=== PATIENT | female | born 1935 | race Caucasian/White ===

== ENCOUNTER → 2021-01-20 18:10 | Outpatient (CLI) | payer MEDICARE, OTHER, SELFPAY ==
[2021-01-20 19:32] LABS: Basophils % 0.6 % (0.1-2.0); Eosinophils # 0.2 K/mm3 (0.0-0.4); Eosinophils % 2.7 % (0.1-12.0); Hematocrit 38.7 % (37.0-47.0); Hemoglobin 12.9 g/dL (12.2-16.2); Lymphocytes # 1.7 K/mm3 (0.7-4.5); Lymphocytes % 25.3 % (10-50); Mean Corpuscular HGB Conc 33.4 g/dL (31.8-35.4); Mean Corpuscular Hemoglobin 30.5 pg (27.0-31.2); Mean Platelet Volume 10.3 fl (7.4-10.4); Monocytes # 0.4 K/mm3 (0.1-1.0); Monocytes % 6.5 % (1.7-9.3); Neutrophils # 4.3 K/mm3 (1.8-7.8); Platelet Count 165 K/mm3 (142-424); Red Blood Count 4.25 M/mm3 (4.20-5.40); Red Cell Distribution Width 14.9 % (11.5-17.5); White Blood Count 6.6 K/mm3 (4.8-10.8)
[2021-01-20 19:40] LABS: Alanine Aminotransferase 18 U/L (12-78); Albumin Level 3.8 g/dl (3.5-5.0); Albumin/Globulin Ratio 1.5 (1.1-1.8); Alkaline Phosphatase 94 U/L (38-126); Anion Gap 13.9 mEq/L (5-15); Aspartate Amino Transferase 32 U/L (14-36); Bilirubin,Total 0.7 mg/dl (0.2-1.3); Blood Urea Nitrogen 23 mg/dl (7-17); Calcium 9.7 mg/dl (8.4-10.2); Carbon Dioxide 29 mmol/L (22.0-30.0); Chloride 101 mmol/L (98-107); Chol/HDL Ratio 4.6 (1-3.5); Cholesterol 164 mg/dl (140-200); Estimated Glomerular Filt Rate 43 ml/min (>60); GFR (African American) 52 ML/MIN (>60); Globulin 2.5 g/dL (1.3-3.2); Glucose 107 mg/dl (74-100); HDL Cholesterol 36 mg/dl (40-60); Potassium 3.9 mmoL/L (3.5-5.1); Sodium 140 mmol/L (136-145); Total Protein,Serum 6.3 g/dl (6.3-8.2); Triglycerides 233 mg/dl (30-150); VLDL Cholesterol 47 mg/dL (0-40)
[2021-01-20 19:51] LABS: Direct LDL Cholesterol 74.68 mg/dL (100-129)
== END ==
PROVIDERS: Visit Provider Internal Medicine Adolescent Medicine
DX: I10 Essential (primary) hypertension (principal); E78.2 Mixed hyperlipidemia
CPT/HCPCS: 80053; 80061; 85025

== ENCOUNTER → 2021-09-23 09:23 | Outpatient (CLI) | payer MEDICARE, OTHER, SELFPAY ==
[2021-09-23 14:08] LABS: Basophils % 0.5 % (0.1-2.0); Eosinophils # 0.3 K/mm3 (0.0-0.4); Eosinophils % 4.5 % (0.1-12.0); Hematocrit 41.3 % (37.0-47.0); Hemoglobin 13.5 g/dL (12.2-16.2); Lymphocytes # 1.5 K/mm3 (0.7-4.5); Lymphocytes % 26.4 % (10-50); Mean Corpuscular HGB Conc 32.7 g/dL (31.8-35.4); Mean Corpuscular Hemoglobin 31.2 pg (27.0-31.2); Mean Corpuscular Volume 95.5 fl (81-99); Mean Platelet Volume 10.4 fl (7.4-10.4); Monocytes # 0.3 K/mm3 (0.1-1.0); Monocytes % 5.8 % (1.7-9.3); Neutrophils # 3.6 K/mm3 (1.8-7.8); Neutrophils % 62.8 % (37.0-80.0); Platelet Count 179 K/mm3 (142-424); Red Blood Count 4.33 M/mm3 (4.20-5.40); White Blood Count 5.7 K/mm3 (4.8-10.8)
[2021-09-23 14:43] LABS: Alanine Aminotransferase 20 U/L (12-78); Albumin Level 3.9 g/dl (3.5-5.0); Albumin/Globulin Ratio 1.7 (1.1-1.8); Alkaline Phosphatase 84 U/L (38-126); Anion Gap 8.5 mEq/L (5-15); Aspartate Amino Transferase 31 U/L (14-36); Bilirubin,Total 0.9 mg/dl (0.2-1.3); Blood Urea Nitrogen 24 mg/dl (7-17); Calcium 9.9 mg/dl (8.4-10.2); Carbon Dioxide 31 mmol/L (22.0-30.0); Chloride 102 mmol/L (98-107); Cholesterol 163 mg/dl (140-200); Estimated Glomerular Filt Rate 47 ml/min (>60); GFR (African American) 57 ML/MIN (>60); Globulin 2.3 g/dL (1.3-3.2); Glucose 98 mg/dl (74-100); HDL Cholesterol 41 mg/dl (40-60); Potassium 3.5 mmoL/L (3.5-5.1); Sodium 138 mmol/L (136-145); Total Protein,Serum 6.2 g/dl (6.3-8.2); Triglycerides 154 mg/dl (30-150); VLDL Cholesterol 31 mg/dL (0-40)
[2021-09-23 14:54] LABS: Direct LDL Cholesterol 76.11 mg/dL (100-129)
== END ==
PROVIDERS: Visit Provider Internal Medicine Adolescent Medicine
DX: I10 Essential (primary) hypertension (principal); E78.00 Pure hypercholesterolemia, unspecified
CPT/HCPCS: 36415; 80053; 80061; 85025

== ENCOUNTER → 2022-06-25 01:00 | Outpatient (CLI) | payer MEDICARE, OTHER, SELFPAY ==
[2022-06-25 18:41] LABS: Basophils % 0.5 % (0.1-2.0); Eosinophils # 0.2 K/mm3 (0.0-0.4); Eosinophils % 3.2 % (0.1-12.0); Hematocrit 42.5 % (37.0-47.0); Hemoglobin 13.7 g/dL (12.2-16.2); Lymphocytes # 1.7 K/mm3 (0.7-4.5); Lymphocytes % 24.9 % (10-50); Mean Corpuscular HGB Conc 32.3 g/dL (31.8-35.4); Mean Corpuscular Hemoglobin 30.4 pg (27.0-31.2); Mean Corpuscular Volume 94.1 fl (81-99); Mean Platelet Volume 9.7 fl (7.4-10.4); Monocytes # 0.4 K/mm3 (0.1-1.0); Monocytes % 5.5 % (1.7-9.3); Neutrophils # 4.4 K/mm3 (1.8-7.8); Neutrophils % 65.9 % (37.0-80.0); Platelet Count 248 K/mm3 (142-424); Red Blood Count 4.51 M/mm3 (4.20-5.40); Red Cell Distribution Width 14.2 % (11.5-17.5); White Blood Count 6.6 K/mm3 (4.8-10.8)
[2022-06-25 18:46] LABS: Alanine Aminotransferase 18 U/L (12-78); Albumin/Globulin Ratio 1.5 (1.1-1.8); Alkaline Phosphatase 134 U/L (38-126); Anion Gap 10.1 mEq/L (5-15); Aspartate Amino Transferase 31 U/L (14-36); Bilirubin,Total 0.6 mg/dl (0.2-1.3); Blood Urea Nitrogen 32 mg/dl (7-17); Calcium 10.9 mg/dl (8.4-10.2); Carbon Dioxide 30 mmol/L (22.0-30.0); Chloride 103 mmol/L (98-107); Chol/HDL Ratio 4.4 (1-3.5); Cholesterol 173 mg/dl (140-200); Estimated Glomerular Filt Rate 39 ml/min (>60); GFR (African American) 47 ML/MIN (>60); Globulin 2.7 g/dL (1.3-3.2); Glucose 111 mg/dl (74-100); HDL Cholesterol 39 mg/dl (40-60); Potassium 4.1 mmoL/L (3.5-5.1); Sodium 139 mmol/L (136-145); Total Protein,Serum 6.7 g/dl (6.3-8.2); Triglycerides 188 mg/dl (30-150); VLDL Cholesterol 38 mg/dL (0-40)
[2022-06-25 18:57] LABS: Direct LDL Cholesterol 83.52 mg/dL (100-129)
[2022-06-25 19:38] LABS: Hemoglobin A1C 6.2 % (4.0-6.0)
== END ==
PROVIDERS: PCP Family Medicine; Visit Provider Family Medicine
DX: E78.5 Hyperlipidemia, unspecified (principal); I10 Essential (primary) hypertension; Z13.1 Encounter for screening for diabetes mellitus; R73.09 Other abnormal glucose
CPT/HCPCS: 80053; 80061; 83036; 84443; 85025

== ENCOUNTER 2023-12-27 18:00 | Outpatient (CLI) | payer MEDICARE, OTHER, SELFPAY ==
[2023-12-27 16:49] LABS: Alanine Aminotransferase 20 U/L (12-78); Albumin/Globulin Ratio 1.7 (1.1-1.8); Alkaline Phosphatase 86 U/L (38-126); Anion Gap 11.5 mEq/L (5-15); Aspartate Amino Transferase 34 U/L (14-36); Bilirubin,Total 0.8 mg/dl (0.2-1.3); Blood Urea Nitrogen 25 mg/dl (7-17); Calcium 10.4 mg/dl (8.4-10.2); Carbon Dioxide 31 mmol/L (22.0-30.0); Chloride 100 mmol/L (98-107); Chol/HDL Ratio 4.4 (1-3.5); Cholesterol 168 mg/dl (140-200); Estimated Glomerular Filt Rate 47 ml/min (>60); GFR (African American) 57 ML/MIN (>60); Globulin 2.4 g/dL (1.3-3.2); Glucose 86 mg/dl (74-100); HDL Cholesterol 38 mg/dl (40-60); Potassium 3.5 mmoL/L (3.5-5.1); Sodium 139 mmol/L (136-145); Total Protein,Serum 6.4 g/dl (6.3-8.2); Triglycerides 179 mg/dl (30-150); VLDL Cholesterol 36 mg/dL (0-40)
[2023-12-27 17:00] LABS: Direct LDL Cholesterol 83.27 mg/dL (100-129)
== END 2023-12-27 23:59 | disposition home or self-care (01) ==
LOC: LAB.DROPOF 01-10 13:37
PROVIDERS: PCP Family Medicine; Visit Provider Family Medicine
DX: I10 Essential (primary) hypertension (principal)
CPT/HCPCS: 80053; 80061

== ENCOUNTER 2024-07-28 16:14 | Emergency (ER) | payer MEDICARE, OTHER, SELFPAY ==
[2024-07-28 16:14] VITALS: BP 223/111; PULSE 68; RESP 20; TEMP 36.9; O2SAT 96; BMI 30.2
--- NOTE | 2024-07-28 16:16 | CT_ITS ---
PROCEDURE INFORMATION: Exam: CT Head Without Contrast Exam date and time: 07/28/2024 4:35 PM Age: 89 years old Clinical indication: Other: Confusion TECHNIQUE: Imaging protocol: Computed tomography of the head without contrast. Radiation optimization: All CT scans at this facility use at least one of these dose optimization techniques: automated exposure control; mA and/or kV adjustment per patient size (includes targeted exams where dose is matched to clinical indication); or iterative reconstruction. COMPARISON: No relevant prior studies available. FINDINGS: Brain: No intracranial hemorrhage. Generalized atrophic changes of the ventricles and subarachnoid spaces. Chronic small-vessel ischemic changes noted. No mass, mass effect or midline shift. Intracranial atherosclerotic changes are noted. Cerebral ventricles: See Brain finding. Paranasal sinuses: Total opacification of the right maxillary sinus with associated mucoperiosteal reaction suggesting possible chronic sinusitis type changes noted. Sinuses otherwise clear. No fluid levels. Mastoid air cells: Visualized mastoid air cells are well aerated. Bones: Unremarkable. No acute fracture. Soft tissues: Unremarkable. IMPRESSION: 1. No acute intracranial abnormality. Chronic changes as above. 2. Right maxillary sinusT disease that may be chronic.
--- NOTE | 2024-07-28 16:16 | ED_ITS ---
<Statement entered by Laura Mckeon MD - 07/28/24 23:24> I was consulted by the BALDEMAR, and we discussed the complexity of the problems being addressed. I approved the treatment and management plan for this patient's care in the emergency department, thus performing a substantive portion of the medical decision making. Laura Mckeon MD, DAGOBERTO, FACEP Discharge Plan Disposition Patient Disposition: Home, Self-Care Condition: Good Prescriptions Prescriptions: New nitrofurantoin monohyd/m-cryst 100 mg capsule 100 mg PO BID 5 Days Qty: 10 0RF Rx Instructions: must administer with a meal/food No Action carvedilol 25 mg tablet 25 mg PO BID 90 Days Qty: 180 0RF Rx Instructions: must administer with a meal/food furosemide 40 mg tablet 40 mg PO DAILY PRN (Reason: edema) Qty: 90 1RF lisinopril 40 mg tablet See Rx Instructions .ROUTE .COMPLEX Qty: 90 0RF Dose Instruction: TAKE 1 TABLET 1 TIME EACH DAY Rx Instructions: TAKE 1 TABLET 1 TIME EACH DAY indapamide 2.5 mg tablet See Rx Instructions .ROUTE .COMPLEX Qty: 90 0RF Dose Instruction: TAKE 1 TABLET 1 TIME EACH DAY Rx Instructions: TAKE 1 TABLET 1 TIME EACH DAY atorvastatin 40 mg tablet See Rx Instructions .ROUTE .COMPLEX Qty: 90 0RF Dose Instruction: TAKE 1 TABLET 1 TIME EACH DAY Rx Instructions: TAKE 1 TABLET 1 TIME EACH DAY aspirin [Adult Aspirin Regimen] 81 mg tablet,delayed release (DR/EC) 81 mg PO DAILY 90 Days Qty: 90 1RF Referrals Follow up/Referrals: Elio Banerjee MD [Primary Care Provider] - See instructions Dakota Fischer MD [Staff Physician] - See instructions Activity Restrictions/Add. Instructions Additional Instructions/Restrictions: Follow-up with your PCP within 48 hours for recheck. I have referred you to cardiology. You need only to show up in clinic on Wednesday and they will see you. Recommend restarting your blood pressure medications. I have prescribed you an antibiotic for bacteria in your urine. Please take that until it is gone. Return to ER for any worsening signs or symptoms as needed. Clinical Impressions Clinical Impression: Hypertension, uncontrolled, Elevated brain natriuretic peptide (BNP) level, Chronic kidney disease, Bacteriuria Print Language Print Language: Uzbek Discharge ED Provider: Laura Mckeon General Adult HPI General Chief complaint: Dizziness Stated complaint: Confusion Time Seen by Provider: 07/28/24 16:15 History of Present Illness HPI narrative: Patient presents for evaluation of dizziness. Patient reports that she has been feeling dizzy over the last 2 weeks. She has a history of hypertension has been poorly controlled. She has been on and off of her medication regimen periodically. Patient himself states that she does not think it is helping as her blood pressure stays high no matter what she takes so far. It is of note that patient is not very receptive to seeing the doctor or taking medication normally and has not actually seen cardiology or nephrology in the past. Currently she denies chest pain fever chills hemoptysis hematochezia melena nausea vomit diarrhea but does report that she is having feet swelling. She has no change in her level of consciousness and is not currently dizzy in the emergency department. Related Data Previous Rx's ?Medication ?Instructions ?Recorded aspirin 81 mg tablet,delayed 81 mg PO DAILY 90 days #90 tabs 07/14/24 release (Adult Aspirin Regimen) atorvastatin 40 mg tablet See Rx Instructions .Route 07/14/24 .COMPLEX #90 tabs carvedilol 25 mg tablet 25 mg PO BID 90 days #180 tabs 07/14/24 furosemide 40 mg tablet 40 mg PO DAILY PRN edema #90 tabs 07/14/24 indapamide 2.5 mg tablet See Rx Instructions .Route 07/14/24 .COMPLEX #90 tabs lisinopril 40 mg tablet See Rx Instructions .Route 07/14/24 .COMPLEX #90 tabs nitrofurantoin 100 mg PO BID 5 days #10 caps 07/28/24 monohydrate/macrocrystals 100 mg capsule Allergies Allergy/AdvReac Type Severity Reaction Status Date / Time No Known Allergies Allergy Verified 07/06/24 08:40 [facility] Disclaimer: The information contained in this section may have been updated after the patient was seen, as this information can be updated by other users. Surgical History History of lumpectomy of right breast H/O tubal ligation Family History Mother Hypertension Father Hypertension Social History Smoking Status: Never smoker alcohol intake: never substance use type: denies use current occupational status: retired Travel in the last 8 weeks: None household members: none housing: house Have you lived/traveled outside US in past 30 days?: No Contact w/someone who lives/traveled outside US past 30 days?: No Exposure to someone with infectious disease in past 14 days?: No Do you have a fever (greater than 100.4 F or 38 C)?: No Have you tested positive for COVID-19: No Exposed to someone with COVID-19 in past 14 days?: No Do you have a sore throat?: No Do you have a cough?: No Do you have any weakness?: No Do you have any diarrhea?: No Are you experiencing any unusual bleeding?: No Do you have any muscle aches/pain?: No Do you have any abdominal pain?: No Are you experiencing loss of taste or smell?: No Other Medical History Have you received the Pneumonia Vaccine: No ROS Obtained: Yes Systems reviewed as appropriate & no additional complaints except as documented Physical Exam General General appearance: alert and in no apparent distress Respiratory Respiratory exam: Present normal lung sounds bilaterally Cardiovascular Cardiovascular exam: Present regular rate Neurological Exam Neurological exam: Present alert, oriented X3, CN II-XII intact and normal gait; Absent motor sensory deficit Psychiatric Psychiatric exam: Present normal affect and normal mood Medical Decision Making Medical Records Medical records reviewed: Yes I reviewed the patient's medical records. Screening: Per USPSTF and CDC recommendations, given the prevalence of disease in our region, it is our hospital?s policy to screen for HIV and viral Hepatitis for all patients aged 18 and over and those with ongoing risk factors. Issa Inquiry Pt receiving controlled substance: No Vital Signs: 07/28/24 16:14 07/28/24 16:22 07/28/24 16:52 Temperature 98.4 F Temperature Source Oral Pulse Rate 69 70 Pulse Rate [Left Radial] 68 Respiratory Rate 20 Blood Pressure 223/111 H 210/107 H Blood Pressure [Right Arm] 223/111 H Blood Pressure Mean [Right Arm] 148 02 Sat by Pulse Oximetry 96 95 97 Oxygen Delivery Method Room Air Room Air 07/28/24 16:55 07/28/24 18:16 07/28/24 18:22 Temperature 98.2 F Temperature Source Pulse Rate 69 74 70 Pulse Rate [Left Radial] Respiratory Rate 20 Blood Pressure 214/107 H 221/110 H 208/90 H Blood Pressure [Right Arm] Blood Pressure Mean [Right Arm] 02 Sat by Pulse Oximetry 96 97 Oxygen Delivery Method Room Air Room Air Lab Data Lab results reviewed: Yes I reviewed the patient's lab results. Lab Results 07/28/24 16:34: Urine Color Dark yellow, Urine Appearance Clear, Urine pH 6.0, Ur Specific [place] 1.020, Urine Protein 1+ A, Urine Glucose (UA) Negative, Urine Ketones Negative, Urine Blood Negative, Urine Nitrate Negative, Urine Bilirubin Negative, Urine Urobilinogen 1.0, Ur Leukocyte Esterase Trace, Urine RBC None, Urine WBC 3-5, Ur Squamous Epith Cells 3-5, Urine Bacteria 2+ 07/28/24 17:05: WBC 5.5, RBC 4.54, Hgb 13.8, Hct 41.3, MCV 91.0, MCH 30.4, MCHC 33.4, RDW 13.2, Plt Count 198, MPV 10.8 H, Neut % (Auto) 69.6, Lymph % (Auto) 21.1, [place] % (Auto) 6.8, Eos % (Auto) 1.5, Baso % (Auto) 0.6, Neut # (Auto) 3.8, Lymph # (Auto) 1.2, [place] # (Auto) 0.4, Eos # (Auto) 0.1, Baso # (Auto) 0.0, PT 10.6, INR 0.96, Sodium 140, Potassium 3.4 L, Chloride 103, Carbon Dioxide 31 H, Anion Gap 9.4, BUN 31 H, Creatinine 1.20 H, Estimated Creat Clear 36, Estimated GFR 42 L, Est GFR ( Amer) 51 L, Glucose 112 H, Calcium 10.3 H, Magnesium 1.6, Total Bilirubin 0.8, AST 29, ALT 19, Alkaline Phosphatase 104, Troponin I 0.02, NT-Pro-B Natriuret Pep 957 H, Total Protein 7.0, Albumin 4.1, Globulin 2.9, Albumin/Globulin Ratio 1.4, Procalcitonin 0.043 07/28/24 17:07: VBG pH 7.41, VBG pCO2 47.3, VBG pO2 35.9, VBG HCO3 29.0, VBG Total CO2 30.5 H, VBG O2 Saturation 69.4, VBG Base Excess 4.3 H, VBG Lactic Acid 1.8 07/28/24 17:13: Chlamy pneumoniae PCR Not detected, Adenovirus (PCR) Not detected, B. pertussis DNA (PCR) Not detected, Coronavirus OC43 (PCR) Not detected, Coronavirus HKU1 (PCR) Not detected, Coronavirus 229E (PCR) Not detected, SARS-CoV-2 (PCR) Not detected, Coronavirus NL63 (PCR) Not detected, Human Metapneumovir PCR Not detected, Influenza A (H1) PCR Not detected, Influ A (H1N1/09) PCR Not detected, Influenza A (H3) PCR Not detected, Influenza Type A (PCR) Not detected, Influenza Type B (PCR) Not detected, M. pneumoniae (PCR) Not detected, Parainfluenza 1 (PCR) Not detected, Parainfluenza 2 (PCR) Not detected, Parainfluenza 3 (PCR) Not detected, Parainfluenza 4 (PCR) Not detected, RSV (PCR) Not detected, Entero/Rhino (PCR) Not detected 07/28/24 17:05 07/28/24 17:05 Orders (Tests/Meds): ED MEDICATIONS Discontinued Medications Generic Name Dose Route Start Last Admin Trade Name Freq PRN Reason Stop Dose Admin Carvedilol 25 mg 07/28/24 17:36 07/28/24 17:49 Carvedilol 25mg Tablet PO 07/28/24 17:37 25 mg ONCE ONE Administration Sodium Chloride 1,000 mls @ 999 mls/hr 07/28/24 17:35 07/28/24 17:48 Sod Chlor 0.9% 1000ml Bag IV 07/28/24 18:35 999 mls/hr .Q1H1M ONE Administration Lisinopril 40 mg 07/28/24 17:37 07/28/24 17:48 Lisinopril 20mg Tablet PO 07/28/24 17:38 40 mg ONCE ONE Administration Nitrofurantoin Macrocrystals 100 mg 07/28/24 18:14 07/28/24 18:22 Nitrofurantoin 100mg Capsule PO 07/28/24 18:15 100 mg ONCE ONE Administration Potassium Chloride 60 meq 07/28/24 17:35 07/28/24 17:48 Potassium Chloride 20meq Tab PO 07/28/24 17:36 60 meq ONCE ONE Administration ORDERS Category Date Time Status CT head/brain wo con Stat Cat Scan 07/28/24 16:16 Completed BNP [NT Pro Brain Natriuretic Pep.] Stat Lab 07/28/24 17:05 Completed CBC w/Auto Diff [Complete Blood Count Auto Diff] Stat Lab 07/28/24 17:05 Completed CMP [Comprehensive Metabolic Panel] Stat Lab 07/28/24 17:05 Completed Full Resp Panel w/COVID ([facility]) Routine Lab 07/28/24 17:13 Completed INR [Prothrombin Time INR] Stat Lab 07/28/24 17:05 Completed Magnesium Stat Lab 07/28/24 17:05 Completed Procalcitonin Stat Lab 07/28/24 17:05 Completed Thyroid Panel Stat Lab 07/28/24 17:05 Received Trop I [Troponin I] Stat Lab 07/28/24 17:05 Completed UA [Urinalysis and Microscopic] Stat Lab 07/28/24 16:34 Completed Urine Culture Stat Micro 07/28/24 16:34 Received VBG [Venous Blood Gas] Stat RT 07/28/24 17:07 Completed HEART Score History (anamnesis): Slightly suspicious ECG: Non-specific disturbance Age: >65 years Risk factors: 3 or more risk factors Troponin: </= normal limit HEART Score: 5 Medical Decision Narrative: In summary patient is a 89-year-old female who presents to the emergency department for evaluation of for dizziness. Patient is initially significantly hypertensive on arrival with a blood pressure of 223/111 with a pulse of 68 normal sinus rhythm on the bedside monitor breathing 20 times a minute satting at 96% on room air , afebrile at 98.4. Physical exam is actually remarkable for clear breath sounds clear heart sounds [place] Coma Score 15 patient is awake alert and oriented person place and circumstance currently. Cranial nerves II through XII are intact grossly to exam. No abdominal tenderness no abdominal swelling normal bowel sounds, patient has 3+ bilateral lower extremity pitting edema however they are nonpainful. Interview with friends and family members in the room however are revealing as patient had an episode where she had 12 phone calls and 1 day to her neighbor and patient does not recall those conversations. She is very much unaware of some periods of time over the last 2 weeks.. Differential diagnosis includes encephalopathy versus stroke versus malignant hypertension versus infection etc. Initial workup will be conducted with hematologic labs CT scan of the head twelve-lead EKG urinalysis respiratory swabs. Initial interventions include were considered including blood pressure lowering medications however I do not know what the patient's functional baseline is and she appears to be mentating appropriately currently swab be highly cautious in lowering her blood pressure until after workup is done. Initial workup reviewed by me and her hematologic labs are remarkable for a potassium of 3.4 BUN of 31 creatinine 1.2 GFR 42 calcium of 10.3 initial troponin of 0.02 and NT proBNP of 957 procalcitonin of 0.043 urinalysis is nitrite ketone leukocyte blood negative on dipstick however microscopic exam shows no red blood cells 3-5 whites 3-5 epithelial cells and 2+ bacteria although patient has no symptoms. Her respiratory panel was negative for all organisms. My informal interpretation of his CT scan of head did not show any acute intracranial processes.. Upon repeat evaluation initiated hypertensive controls with first doses of the patient's home doses of lisinopril and carvedilol. I talked to the patient regarding her workup and findings and that she does have evidence of endorgan damage both long-term and possibly acutely given her worsening renal function, the fact that the patient does not know that she has chronic renal disease, her elevated NT proBNP and her periods of lucidity suggestive of hypertensive encephalopathy. I did recommend further workup with possible admission but patient was adamant about going home and via patient directed decision making and discharge she retains decision-making capacity for this and although I highly caution her about the risks she will be discharged. I have arranged for the patient to be seen by her PCP on Wednesday as well as cardiology. All she has to do is show up at the cardiology clinic and they will see her. I have given the patient the option to return to the ER at any time if she has any worsening signs or symptoms. Critical Care Critical Care Time Critical Care Time: Yes Attestation: On 07/28/24, the high probability of a clinically significant, sudden or life threatening deterioration of the following system(s) required my full and direct attention, intervention and personal management. The time I documented below is in addition to time spent performing reported procedures but includes the following listed in this critical care notation. Total Time Total Critical Care Time: 35
[2024-07-28 16:22] VITALS: BP 223/111; PULSE 69; O2SAT 95
[2024-07-28 16:39] LABS: Microscopic, Urine URINE MICROSCOPIC (MICROSCOPIC)
[2024-07-28 16:46] LABS: Appearance,Urine CLEAR (Clear); Bilirubin,Urine Negative (Negative); Blood, Urine Negative (Negative); Color,Urine DARK YELLOW (Yellow); Glucose,Urine (UA) Negative (Negative); Ketones,Urine Negative (Negative); Leukocyte Esterase,Urine TRACE (Negative); Nitrate,Urine Negative (Negative); Protein,Urine 1+ (Negative)
[2024-07-28 16:52] VITALS: BP 210/107; PULSE 70; O2SAT 97
[2024-07-28 16:55] VITALS: BP 214/107; PULSE 69; O2SAT 96
[2024-07-28 17:12] LABS: Basophils % 0.6 % (0.1-2.0); Eosinophils # 0.1 K/mm3 (0.0-0.4); Eosinophils % 1.5 % (0.1-12.0); Hematocrit 41.3 % (37.0-47.0); Hemoglobin 13.8 g/dL (12.2-16.2); Lymphocytes # 1.2 K/mm3 (0.7-4.5); Lymphocytes % 21.1 % (10-50); Mean Corpuscular HGB Conc 33.4 g/dL (31.8-35.4); Mean Corpuscular Hemoglobin 30.4 pg (27.0-31.2); Mean Platelet Volume 10.8 fl (7.4-10.4); Monocytes # 0.4 K/mm3 (0.1-1.0); Monocytes % 6.8 % (1.7-9.3); Neutrophils # 3.8 K/mm3 (1.8-7.8); Neutrophils % 69.6 % (37.0-80.0); Platelet Count 198 K/mm3 (142-424); Red Blood Count 4.54 M/mm3 (4.20-5.40); Red Cell Distribution Width 13.2 % (11.5-17.5); White Blood Count 5.5 K/mm3 (4.8-10.8)
[2024-07-28 17:17] LABS: Lactate Venous 1.8 mmol/L (0.4-2.0); VBG Base Excess 4.3 mmol/L (-2.4-2.3); VBG Oxygen Saturation 69.4 % (50-70); VBG PCO2 47.3 mmol/L (35-51); VBG PH 7.41 mmol/L (7.31-7.41); VBG PO2 35.9 mmol/L (28-40); VBG Total CO2 30.5 mmol/L (23-27)
[2024-07-28 17:25] LABS: Alanine Aminotransferase 19 U/L (12-78); Albumin Level 4.1 g/dl (3.5-5.0); Albumin/Globulin Ratio 1.4 (1.1-1.8); Alkaline Phosphatase 104 U/L (38-126); Anion Gap 9.4 mEq/L (5-15); Aspartate Amino Transferase 29 U/L (14-36); Bilirubin,Total 0.8 mg/dl (0.2-1.3); Blood Urea Nitrogen 31 mg/dl (7-17); Calcium 10.3 mg/dl (8.4-10.2); Carbon Dioxide 31 mmol/L (22.0-30.0); Chloride 103 mmol/L (98-107); Creatinine Clearance Estimated 36 mL/min (50-200); Estimated Glomerular Filt Rate 42 ml/min (>60); GFR (African American) 51 ML/MIN (>60); Globulin 2.9 g/dL (1.3-3.2); Glucose 112 mg/dl (74-100); Potassium 3.4 mmoL/L (3.5-5.1); Sodium 140 mmol/L (136-145)
[2024-07-28 17:33] LABS: Magnesium 1.6 mg/dl (1.6-2.3)
[2024-07-28 17:34] LABS: Adenovirus,PCR Not Detected (NotDetected); Bordetella Pertussis Not Detected (NotDetected); Chlamydophila Pneumoniae, PCR Not Detected (NotDetected); Coronavirus 19, PCR Not Detected (NotDetected); Coronavirus 229E Not Detected (NotDetected); Coronavirus NL63 Not Detected (NotDetected); Coronavirus OC43 Not Detected (NotDetected); Coronovirus HKU1,PCR Not Detected (NotDetected); Human Metapneumovirus Not Detected (NotDetected); Influenza A, PCR Not Detected (NotDetected); Influenza AH1, 2009 Not Detected (NotDetected); Influenza AH1, PCR Not Detected (NotDetected); Influenza AH3,PCR Not Detected (NotDetected); Influenza B, PCR Not Detected (NotDetected); Mycoplasma Pneumoniae, PCR Not Detected (NotDetected); Parainfluenza 1, PCR Not Detected (NotDetected); Parainfluenza 2, PCR Not Detected (NotDetected); Parainfluenza 3, PCR Not Detected (NotDetected); Parainfluenza 4, PCR Not Detected (NotDetected); Respiratory Syncytial Virus Not Detected (NotDetected); Rhinovirus/Enterovirus Not Detected (NotDetected)
[2024-07-28 17:37] LABS: Troponin I 0.02 ng/ml (0.00-0.034)
[2024-07-28 17:38] LABS: INR 0.96 (0.9-1.1); Prothrombin Time 10.6 seconds (9.2-12.1)
[2024-07-28 17:42] LABS: NT Pro Brain Natriuretic Pep. 957 pg/mL (0-450)
[2024-07-28] MEDS: LISINOPRIL 20MG TABLET 40 MG PO (17:48)
[2024-07-28] MEDS: 0.9 % SODIUM CHLORIDE 1000ML 1,000 ML 999 ML IV (17:48)
[2024-07-28] MEDS: POTASSIUM CHLORIDE 20MEQ TAB 60 MEQ PO (17:48)
[2024-07-28 17:49] LABS: Bacteria,Urine 2+ /lpf
[2024-07-28] MEDS: CARVEDILOL 25MG TABLET 25 MG PO (17:49)
--- NOTE | 2024-07-28 18:13 | PC.NURSE ---
pt was given a warm blanket
[2024-07-28 18:16] VITALS: BP 221/110; PULSE 74; O2SAT 97
[2024-07-28 18:22] VITALS: BP 208/90; PULSE 70; RESP 20; TEMP 36.8; O2SAT 98
[2024-07-28] MEDS: NITROFURANTOIN 100MG CAPSULE 100 MG PO (18:22)
[2024-07-28 18:48] LABS: Procalcitonin 0.043 ng/mL (0.0-2.0)
[2024-07-28 20:22] LABS: Triiodothryronine (T3) Uptake 33 % (23.5-40.5)
[2024-07-28 20:23] LABS: Free Thyroxine Index 3.6 ug/dL (5.93-13.13)
== END 2024-07-28 18:35 | disposition home or self-care (01) ==
PROVIDERS: Physician Assistant; Emergency Provider Student in an Organized Health Care Education/Training Program; PCP Family Medicine
DX: R82.71 Bacteriuria (principal); N18.9 Chronic kidney disease, unspecified; I12.9 Hypertensive chronic kidney disease with stage 1 through stage 4 chronic kidney disease, or unspecified chronic kidney disease; R79.89 Other specified abnormal findings of blood chemistry; R42 Dizziness and giddiness; R22.43 Localized swelling, mass and lump, lower limb, bilateral
CPT/HCPCS: 70450; 80053; 81001; 82803; 83735; 83880; 84145; 84436; 84443; 84479; 84484; 85025; 85610; 87086; 87633; 96360; 99285; J7030

== ENCOUNTER 2024-11-23 11:59 | Observation (INO) | payer MEDICARE, OTHER, SELFPAY ==
[2024-11-23] VITALS (12 sets, daily range): BP systolic 133–203; BP diastolic 60–114; PULSE 60–79; RESP 14–20; TEMP 36.5–36.7; O2SAT 92–99; BMI 26.8; BMI 28.8
--- NOTE | 2024-11-23 11:59 | ECG_ITS ---
APPROVED REPORT Exam: Resting ECG HR:60 bpm ECG Measurements Heart Rate 60 AXES IA 127 P 245 QRSd 107 QRS -25 QT 437 T 18 QTc 437 Conclusion Junctional rhythm Left axis deviation Incomplete right bundle branch block Electronically signed by : WILLIAM GARCIA, 11/26/2024 19:36:10
--- NOTE | 2024-11-23 12:20 | CT_ITS ---
FINAL REPORT TECHNIQUE: NASCET technique utilized for stenosis evaluation. CLINICAL HISTORY: fall, AMS COMPARISON: None FINDINGS: RIGHT CAROTID: No significant stenosis is seen of the cervical common or internal carotid artery. Minimal calcification at the bifurcation. LEFT CAROTID: No significant stenosis seen of the cervical common or internal carotid artery. Minimal calcification at the bifurcation. VERTEBRALS: The vertebrals are patent. No significant stenosis is present. IMPRESSION: No significant arterial abnormality. Reviewed, Interpreted and Dictated by Jairo Rader MD Transcribed by Iliana Damon Authenticated and [facility]
--- NOTE | 2024-11-23 12:20 | CT_ITS ---
FINAL REPORT TECHNIQUE: thin section axial CT with and without IV contrast supplemented with multiplanar 3-D reconstruction of the head. This study was performed with techniques to keep radiation doses as low as reasonably achievable, (ALARA)individualized dose reduction techniques using automated exposure control or adjustment of mA and/or kV according to the patient's size were employed. CLINICAL HISTORY: fall, AMS COMPARISON: None FINDINGS: The patient's head is asymmetrically positioned at the gantry. CTA: The cranial circulation is unremarkable. There is no significant stenosis, aneurysm or large vessel occlusion. Normal branching patterns are noted. There is opacification of the right maxillary sinus IMPRESSION: No acute process. Reviewed, Interpreted and Dictated by Jairo Rader MD Transcribed by Iliana Damon Authenticated and [facility]
--- NOTE | 2024-11-23 12:20 | CT_ITS ---
FINAL REPORT TECHNIQUE: Multiple axial CT images were performed from the foramen magnum to the vertex without enhancement. This study was performed with techniques to keep radiation doses as low as reasonably achievable, (ALARA). Individualized dose reduction techniques using automated exposure control or adjustment of mA and/or kV according to the patient's size were employed. CLINICAL HISTORY: fall, AMS COMPARISON: 07/28/2024 FINDINGS: The ventricles are enlarged. There is diffuse atrophy. There is patchy decreased attenuation in the deep white matter. There is no evidence of hemorrhage. No masses are identified. No extra-axial fluid is seen. There is opacification of the right maxillary sinus, stable from previous. IMPRESSION: Atrophy and chronic changes without acute process. Reviewed, Interpreted and Dictated by Jairo Rader MD Transcribed by Cyndi Reynolds Authenticated and [facility]
--- NOTE | 2024-11-23 12:23 | PC.NURSE ---
I called and spoke with the pts person to notify, Xiomara, to obtain the pts baseline whom is typically A&0X4 and independent. Xiomara states when she talked to the pt last night she was very confused. The pt reportedly told Xiomara at that time that she has been out of her medication.
--- NOTE | 2024-11-23 12:24 | PC.NURSE ---
RESPIRATORY NOTIFIED OF VBG
[2024-11-23 12:30] LABS: Basophils % 0.5 % (0.1-2.0); Eosinophils # 0.1 Kmm3 (0.0-0.4); Eosinophils % 1.4 % (0.1-12.0); Hematocrit 36.6 % (37.0-47.0); Hemoglobin 12.4 g/dL (12.2-16.2); Immature Granulocytes # 0.02 10^3uL; Immature Granulocytes % 0.4 %; Lymphocytes # 0.9 K/mm3 (0.7-4.5); Lymphocytes % 16.1 % (10-50); Mean Corpuscular HGB Conc 33.9 g/dL (31.8-35.4); Mean Corpuscular Hemoglobin 30.5 pg (27.0-31.2); Mean Corpuscular Volume 90.1 fl (81-99); Mean Platelet Volume 10.5 fl (7.4-10.4); Monocytes # 0.4 K/mm3 (0.1-1.0); Neutrophils # 4.1 K/mm3 (1.8-7.8); Neutrophils % 73.6 % (37.0-80.0); Nucleated Red Blood Cells # 0 10^3/uL; Nucleated Red Blood Cells % 0 %; Platelet Count 212 K/mm3 (142-424); Red Blood Count 4.06 M/mm3 (4.20-5.40); Red Cell Distribution Width 13.4 % (11.5-17.5); Red Cell Distribution Width-SD 44.7 fL; White Blood Count 5.5 K/mm3 (4.8-10.8)
[2024-11-23 12:34] LABS: Microscopic, Urine URINE MICROSCOPIC (MICROSCOPIC)
[2024-11-23 12:34] LABS: Lactate Venous 1.6 mmol/L (0.4-2.0); VBG Base Excess 1.8 mmol/L (-2.4-2.3); VBG HCO3 26.2 mmol/L (23-30); VBG Oxygen Saturation 91.3 % (50-70); VBG PCO2 40.9 mmol/L (35-51); VBG PH 7.43 mmol/L (7.31-7.41); VBG PO2 62.8 mmol/L (28-40); VBG Total CO2 27.5 mmol/L (23-27)
--- NOTE | 2024-11-23 12:34 | ED_ITS ---
Discharge Plan Disposition Patient Disposition: Admitted Chief Complaint: Syncope Prescriptions Prescriptions: No Action carvedilol 25 mg tablet 25 mg PO BID 90 Days Qty: 180 0RF Rx Instructions: must administer with a meal/food furosemide 40 mg tablet 40 mg PO DAILY PRN (Reason: edema) Qty: 90 1RF lisinopril 40 mg tablet See Rx Instructions .ROUTE .COMPLEX Qty: 90 0RF Dose Instruction: TAKE 1 TABLET 1 TIME EACH DAY Rx Instructions: TAKE 1 TABLET 1 TIME EACH DAY indapamide 2.5 mg tablet See Rx Instructions .ROUTE .COMPLEX Qty: 90 0RF Dose Instruction: TAKE 1 TABLET 1 TIME EACH DAY Rx Instructions: TAKE 1 TABLET 1 TIME EACH DAY atorvastatin 40 mg tablet See Rx Instructions .ROUTE .COMPLEX Qty: 90 0RF Dose Instruction: TAKE 1 TABLET 1 TIME EACH DAY Rx Instructions: TAKE 1 TABLET 1 TIME EACH DAY aspirin [Adult Aspirin Regimen] 81 mg tablet,delayed release (DR/EC) 81 mg PO DAILY 90 Days Qty: 90 1RF clonidine HCl 0.1 mg tablet 0.1 mg PO DAILY PRN (Reason: high blood pressure) Qty: 30 0RF Referrals Follow up/Referrals: Provider,Referral, MD [Primary Care Provider] - See instructions Clinical Impressions Clinical Impression: Acute encephalopathy Instructions Patient Instructions: DI for Syncope in Adults (Fainting), DI for Syncope in Children (Fainting) Print Language Print Language: Urdu Discharge ED Provider: Hany Lozano General Adult HPI General Chief complaint: Syncope Stated complaint: AMS Time Seen by Provider: 11/23/24 12:10 History of Present Illness HPI narrative: Please note that above description of symptoms, in this electronic medical record under categorization of recalled from ER triage doctor by RN are reflective of an initial nursing assessment, however, is not reflective of my full history and physical exam that was personally taken and clarified. Consequentially, this preceding description of symptoms, which may include the patient's categorized chief complaint in the EMR, do not reflect my personal clinical impression, and the ultimate description of history of present illness and patient stated complaints should be deferred to this section of the note. Unless stated otherwise or congruent with this section of the note, additional signs, symptoms, or incongruence should be interpreted as inaccurate with my clinical impression. Related Data Previous Rx's ?Medication ?Instructions ?Recorded aspirin 81 mg tablet,delayed 81 mg PO DAILY 90 days #90 tabs 07/14/24 release (Adult Aspirin Regimen) atorvastatin 40 mg tablet See Rx Instructions .Route 07/14/24 .COMPLEX #90 tabs carvedilol 25 mg tablet 25 mg PO BID 90 days #180 tabs 07/14/24 furosemide 40 mg tablet 40 mg PO DAILY PRN edema #90 tabs 07/14/24 indapamide 2.5 mg tablet See Rx Instructions .Route 07/14/24 .COMPLEX #90 tabs lisinopril 40 mg tablet See Rx Instructions .Route 07/14/24 .COMPLEX #90 tabs clonidine HCl 0.1 mg tablet 0.1 mg PO DAILY PRN high blood 09/18/24 pressure #30 tabs Allergies Allergy/AdvReac Type Severity Reaction Status Date / Time No Known Allergies Allergy Verified 08/11/24 10:24 [facility] Disclaimer: The information contained in this section may have been updated after the patient was seen, as this information can be updated by other users. Medical History Abnormal electrocardiogram [ECG] [EKG] Surgical History History of lumpectomy of right breast H/O tubal ligation Family History Mother Hypertension Father Hypertension Social History Smoking Status: Never smoker alcohol intake: never substance use type: denies use current occupational status: retired Travel in the last 8 weeks?: None household members: none housing: house Have you lived/traveled outside [place] in past 30 days?: No Contact w/someone who lives/traveled outside US past 30 days?: No Exposure to someone with infectious disease in past 14 days?: No Do you have a fever (greater than 100.4 F or 38 C)?: No Have you tested positive for COVID-19?: No Exposed to someone with COVID-19 in past 14 days?: No Do you have a sore throat?: No Do you have a cough?: No Do you have any weakness?: No Do you have any diarrhea?: No Are you experiencing any unusual bleeding?: No Do you have any muscle aches/pain?: No Do you have any abdominal pain?: No Are you experiencing loss of taste or smell?: No Other Medical History Have you received the Pneumonia Vaccine: No ROS Obtained: Yes All systems reviewed & no additional complaints except as documented Physical Exam General General appearance: alert and in no apparent distress Head Head exam: atraumatic and normocephalic Eye Eye exam: Present normal appearance, PERRL and EOMI Neck Neck exam: Present normal inspection, full ROM and trachea midline Respiratory Respiratory exam: Present normal lung sounds bilaterally and other (Speaking in full sentences); Absent respiratory distress, wheezes, stridor, accessory muscle use or prolonged expiratory phase Cardiovascular Cardiovascular exam: Present regular rate and other (Pulses equal symmetric in upper and lower extremities) Abdominal Exam Abdominal exam: Present soft; Absent distention, tenderness, guarding, rebound, rigidity or pulsatile mass Extremities Exam Extremities exam: Present edema Neurological Exam Neurological exam: Present alert and CN II-XII intact; Absent oriented X3 (Oriented only to person not time, place or situation) or motor sensory deficit Skin Skin exam: Present warm and dry; Absent diaphoresis or erythema Medical Decision Making Medical Records Medical records reviewed: Yes I reviewed the patient's medical records. Screening: Per USPSTF and CDC recommendations, given the prevalence of disease in our region, it is our hospital?s policy to screen for HIV and viral Hepatitis for all patients aged 18 and over and those with ongoing risk factors. Issa Inquiry Pt receiving controlled substance: No Issa was queried for this patient: No Vital Signs: 11/23/24 12:30 11/23/24 12:32 11/23/24 13:32 Pulse Rate 61 72 Pulse Rate [Right Radial] 63 Respiratory Rate 19 14 20 Blood Pressure 144/65 H 194/96 H Blood Pressure [Right Arm] 203/99 H Blood Pressure Mean [Right Arm] 133 Blood Pressure Source [Right Arm] Automatic Cuff Blood Pressure Position [Right Arm] Supine 02 Sat by Pulse Oximetry 96 95 95 Oxygen Delivery Method Room Air Room Air 11/23/24 13:53 11/23/24 14:00 11/23/24 14:30 Pulse Rate 69 67 66 Pulse Rate [Right Radial] Respiratory Rate 17 14 20 Blood Pressure 162/85 H 167/96 H 165/87 H Blood Pressure [Right Arm] Blood Pressure Mean [Right Arm] Blood Pressure Source [Right Arm] Blood Pressure Position [Right Arm] 02 Sat by Pulse Oximetry 93 L 92 L 93 L Oxygen Delivery Method Room Air Room Air Room Air Lab Data Lab Results 11/23/24 12:03: WBC 5.5, RBC 4.06 L, Hgb 12.4, Hct 36.6 L, MCV 90.1, MCH 30.5, MCHC 33.9, RDW 13.4, Plt Count 212, MPV 10.5 H, Neut % (Auto) 73.6, Lymph % (Auto) 16.1, Hickman % (Auto) 8.0, Eos % (Auto) 1.4, Baso % (Auto) 0.5, Neut # (Auto) 4.1, Lymph # (Auto) 0.9, Hickman # (Auto) 0.4, Eos # (Auto) 0.1, Baso # (Auto) 0.0, PT 12.0, INR 1.08, APTT 23.6, Sodium 137, Potassium 3.2 L, Chloride 103, Carbon Dioxide 28, Anion Gap 9.2, BUN 31 H, Creatinine 1.20 H, Estimated Creat Clear 37, Estimated GFR 42 L, Est GFR ( Amer) 51 L, Glucose 136 H, Hemoglobin A1c 5.5, Calcium 9.9, Magnesium 1.5 L, Total Bilirubin 1.0, AST 42 H, ALT 16, Alkaline Phosphatase 92, Troponin I 0.03, NT-Pro-B Natriuret Pep 922 H, Total Protein 6.6, Albumin 4.0, Globulin 2.6, Albumin/Globulin Ratio 1.5, Lipase 122, Procalcitonin 0.061, TSH 4.79 H, Thyroxine (T4) 11.3 H, HCV Ab LIANNA w/Rflx PCR Qn Negative, HIV Ag/Ab Combo Qual Negative 11/23/24 12:26: VBG pH 7.43 H, VBG pCO2 40.9, VBG pO2 62.8 H, VBG HCO3 26.2, VBG Total CO2 27.5 H, VBG O2 Saturation 91.3 H, VBG Base Excess 1.8, VBG Lactic Acid 1.6 11/23/24 12:28: Urine Color Yellow, Urine Appearance Clear, Urine pH 6.0, Ur Specific [place] 1.010, Urine Protein Negative, Urine Glucose (UA) Negative, Urine Ketones Negative, Urine Blood Trace-i, Urine Nitrate Negative, Urine Bilirubin Negative, Urine Urobilinogen 0.2, Ur Leukocyte Esterase Negative, Urine RBC Occasional, Urine WBC None, Ur Squamous Epith Cells Occasional, Urine Bacteria Trace 11/23/24 13:04: Lactate 1.5 11/23/24 12:03 11/23/24 12:03 Orders (Tests/Meds): ED MEDICATIONS Discontinued Medications Generic Name Dose Route Start Last Admin Trade Name Freq PRN Reason Stop Dose Admin Iopamidol 100 ml 11/23/24 13:22 11/23/24 13:25 Iopamidol-370 (76%);100ml Bottle IV 11/23/24 13:23 100 ml ONCE ONE Administration Iopamidol 50 ml 11/23/24 13:23 11/23/24 13:25 Iopamidol-370 (76%);100ml Bottle IV 11/23/24 13:24 50 ml ONCE ONE Administration Sodium Chloride 40 ml 11/23/24 13:22 11/23/24 13:24 0.9 % Sodium Chloride 50 Ml Vial IV 11/23/24 13:23 40 ml ONCE ONE Administration Sodium Chloride 10 ml 11/23/24 13:22 11/23/24 13:24 Sodium Chloride 0.9% 10ml Syr (Rad Only) IV 11/23/24 13:23 10 ml ONCE ONE Administration Sodium Chloride 40 ml 11/23/24 13:24 11/23/24 13:25 0.9 % Sodium Chloride 50 Ml Vial IV 11/23/24 13:25 40 ml ONCE ONE Administration ORDERS Category Date Time Status CT angio head Stat Cat Scan 11/23/24 12:[address] angio neck Stat Cat Scan 11/23/24 12:[address] head/brain wo con Stat Cat Scan 11/23/24 12:20 Completed CTA Chest [CT angio chest PE protocol] Stat Cat Scan 11/23/24 12:43 Completed XR chest portable Stat Exams 11/23/24 13:25 Completed Complete Blood Count Auto Diff Stat Lab 11/23/24 12:03 Completed Comprehensive Metabolic Panel Stat Lab 11/23/24 12:03 Completed HIV Combo Stat Lab 11/23/24 12:03 Completed Hemoglobin A1C Stat Lab 11/23/24 12:03 Completed Hepatitis C Ab Qual. W/ RFX Stat Lab 11/23/24 12:03 Completed Lactic Acid Stat Lab 11/23/24 13:04 Completed Lipase Stat Lab 11/23/24 12:03 Completed Magnesium Stat Lab 11/23/24 12:03 Completed NT Pro Brain Natriuretic Pep. Stat Lab 11/23/24 12:03 Completed PT INR [Prothrombin Time INR] Stat Lab 11/23/24 12:03 Completed PTT [Activated Partial Thrombo Time] Stat Lab 11/23/24 12:03 Completed Procalcitonin Stat Lab 11/23/24 12:03 Completed T4 (Thyroxine) Stat Lab 11/23/24 12:03 Completed TSH [Thyroid Stimulating Hormone] Stat Lab 11/23/24 12:03 Completed Troponin I Q3H Lab 11/23/24 15:30 Ordered Troponin I Q3H Lab 11/23/24 18:30 Ordered Troponin I Stat Lab 11/23/24 12:03 Completed Urinalysis and Microscopic Stat Lab 11/23/24 12:28 Completed Venous Blood Gas Stat RT 11/23/24 12:26 Completed Medical Decision Narrative: This is an 89-year-old female history of hypertension, hyperlipidemia, CAD presenting with altered mental status. Per EMS report who brought her in, patient drove herself to the local [facility], when she got there, she was confused, passed out versus fell (unclear) and was helped up into a chair to wait for EMS. EMS got there and blood glucose was right around 200. Alert, but oriented only to person, not place, time, or situation. Brought in for further evaluation. On arrival to the emergency department, patient denies any current symptoms other than urinary frequency and urgency. No chest pain, shortness of breath, headache, vision changes, chest pain, nausea, vomiting, abdominal pain, etc. States that her legs are swollen, but do not appear to be more swollen than usual. We were able to contact patient's emergency contact who states that patient has been confused since yesterday. Not acting herself, but did not complain of anything yesterday either. History was obtained via conversation with patient, EMS, family friend. On arrival, patient hemodynamically stable, alert, oriented only to person, appropriate, GCS 14, moving all extremities spontaneously, pupils equal and reactive to light. Full physical exam performed and significant for confused, agitated woman who is in no acute distress. Stating that she needs to go the bathroom as soon as possible. Lungs are clear, cardiac exam without murmurs gallops or rubs, abdomen is soft, nontender, nondistended, no flank tenderness. She is neurologically intact including cranial nerves, cerebellar, motor and sensory exams. Ambulation trial was deferred at this time. Bilateral lower extremities with 2+ pitting edema. Differential includes urinary tract infection, pneumonia, infectious delirium, metabolic abnormality/delirium, intoxication, withdrawal, sepsis, ACS, ME, intracranial hemorrhage, CVA, among others. Patient placed on continuous cardiac monitoring and continuous pulse ox with initial blood pressure 144/65, heart rate 61, saturation 95% on room air. Independent interpretation of EKG shows junctional rhythm with left axis deviation. No obvious acute ischemic changes. CA 127, QRS 107, QTc 437. Workup independently interpreted and significant for nonactionable CBC. Chemistry with stable CKD creatinine 1.2 and BUN 31. Potassium a little low at 3.2. Patient's magnesium also low at 1.5, both of these were repleted IV.. On independent interpretation of imaging, no intracranial hemorrhage. No CVA or intrathoracic process. See radiology read for full review of final results. On reevaluation, patient resting comfortably, still with no complaints, but is still confused and oriented only to person. Family at bedside providing some history. States that she has not been taking any of her meds for the past couple of weeks, she is only on high blood pressure and hyperlipidemia meds and states that when she does not take her meds sometimes she gets this way. Patient still noncontributory to history. Given confused, not oriented, very far from her baseline, to be admitted. Given patient presentation, workup, history, this most likely represents acute encephalopathy, unknown etiology. I consulted the hospitalist and case was discussed at length, patient to be admitted. Because patient high risk for clinical decompensation, deemed appropriate for inpatient admission. Results were relayed to patient who voiced understanding and patient was agreeable to inpatient admission and management. Patient was admitted to the hospital for further definitive management. Ems Instructor disclaimer Much of this encounter note is an electronic locomotive lubricating systems clerk spoken language to printed text. Electronic locomotive lubricating systems clerk of the spoken language may permit errors. Although I have reviewed the note, some errors may still exist. Critical Care Critical Care Time Critical Care Time: No
[2024-11-23 12:35] LABS: Chloride 103 mmol/L (98-107)
[2024-11-23 12:36] LABS: Potassium 3.2 mmoL/L (3.5-5.1); Sodium 137 mmol/L (136-145)
--- NOTE | 2024-11-23 12:36 | PC.NURSE ---
bed alarm placed on patient at this time.
[2024-11-23 12:38] LABS: Alanine Aminotransferase 16 U/L (12-78); Albumin/Globulin Ratio 1.5 (1.1-1.8); Alkaline Phosphatase 92 U/L (38-126); Anion Gap 9.2 mEq/L (5-15); Aspartate Amino Transferase 42 U/L (14-36); Blood Urea Nitrogen 31 mg/dl (7-17); Carbon Dioxide 28 mmol/L (22.0-30.0); Estimated Glomerular Filt Rate 42 ml/min (>60); GFR (African American) 51 ML/MIN (>60); Globulin 2.6 g/dL (1.3-3.2); Total Protein,Serum 6.6 g/dl (6.3-8.2)
[2024-11-23 12:39] LABS: Appearance,Urine CLEAR (Clear); Bilirubin,Urine Negative (Negative); Blood, Urine TRACE-I (Negative); Color,Urine YELLOW (Yellow); Glucose,Urine (UA) Negative (Negative); Ketones,Urine Negative (Negative); Leukocyte Esterase,Urine Negative (Negative); Nitrate,Urine Negative (Negative); Protein,Urine Negative (Negative); Urobilinogen,Urine 0.2 EU/dl (0.2)
[2024-11-23 12:39] LABS: Calcium 9.9 mg/dl (8.4-10.2); Glucose 136 mg/dl (74-100); Lipase 122 U/L (23-300); Magnesium 1.5 mg/dl (1.6-2.3)
[2024-11-23 12:41] LABS: Creatinine Clearance Estimated 37 mL/min (50-200)
[2024-11-23 12:43] LABS: Activated Partial Thrombo Time 23.6 seconds (22.8-30.6); INR 1.08 (0.9-1.1)
--- NOTE | 2024-11-23 12:43 | CT_ITS ---
FINAL REPORT TECHNIQUE: The patient was injected with IV contrast. Axial images were obtained through the chest in a PE protocol. 3-D reconstruction images were also performed. Individualized dose reduction techniques using automated exposure control or adjustment of the MA and/or KV according to patient's size were employed. CLINICAL HISTORY: syncope, ams COMPARISON: none FINDINGS: Mediastinal vasculature is adequately opacified. No pulmonary artery filling defects are identified to suggest PE. There is no aortic dissection. There is vascular calcification in the proximal right subclavian artery with high-grade stenosis well-seen on images 25 through 29 of series 5. There is no axillary adenopathy. There is no hilar or mediastinal adenopathy. The heart size is normal. There is no pericardial or pleural effusion. Scarring is noted at the lung bases. No suspicious infiltrate or nodule is identified. Limited images of the upper abdomen demonstrate no acute findings. The gallbladder is present. Benign cysts are noted in both kidneys measuring up to 1.5 cm. IMPRESSION: No pulmonary embolus or dissection. 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 Bilateral upper extremity blood pressure measurements may be of value. Reviewed, Interpreted and Dictated by Jairo Rader MD Transcribed by Iliana Damon Authenticated and [facility]
[2024-11-23 12:49] LABS: NT Pro Brain Natriuretic Pep. 922 pg/mL (0-450)
[2024-11-23 12:52] LABS: Troponin I 0.03 ng/ml (0.00-0.034)
[2024-11-23 12:56] LABS: T4 (Thyroxine) 11.3 ug/dl (5.53-11.0)
[2024-11-23 12:56] LABS: Bacteria,Urine Trace /lpf; RBC,Urine Occasional #/hpf (0-3); Squamous Epithelial Cell,Urine Occasional #/hpf (0-5)
--- NOTE | 2024-11-23 13:06 | PC.NURSE ---
Jim collected and sent to lab.
[2024-11-23 13:20] LABS: Procalcitonin 0.061 ng/mL (0.0-2.0); Thyroid Stimulating Hormone 4.79 uIU/mL (0.465-4.68)
[2024-11-23] MEDS: 0.9 % SODIUM CHLORIDE 50 ML VIAL 40 ML IV ×2 (13:24→13:25)
[2024-11-23] MEDS: SODIUM CHLORIDE 0.9% 10ML SYR (RAD ONLY) 10 ML IV (13:24)
[2024-11-23] MEDS: IOPAMIDOL-370 (76%);100ML BOTTLE 50 ML IV (13:25)
[2024-11-23] MEDS: IOPAMIDOL-370 (76%);100ML BOTTLE 100 ML IV (13:25)
--- NOTE | 2024-11-23 13:25 | XR_ITS ---
FINAL REPORT CLINICAL HISTORY: fall, ams FINDINGS: SINGLE VIEW CHEST The heart is in the upper limits of normal in size. There is an unfolded aorta. Chronic changes are seen at the bases. The lungs are otherwise clear. There is no pneumothorax. IMPRESSION: No acute process. Reviewed, Interpreted and Dictated by Jairo Rader MD Transcribed by Cyndi Reynolds Authenticated and [facility]
[2024-11-23 13:29] LABS: Lactic Acid 1.5 mmol/L (0.7-2.1)
[2024-11-23 13:49] LABS: Hemoglobin A1C 5.5 % (4.0-6.0)
[2024-11-23 13:51] LABS: HIV Combo NEGATIVE (Negative)
--- NOTE | 2024-11-23 13:58 | PC.NURSE ---
dr vu at bedside
[2024-11-23 13:59] LABS: Hepatitis C Ab Qual. W/ RFX NEGATIVE (Negative)
[2024-11-23] MEDS: MAGNESIUM SULFATE IN WATER 2 GM/50 ML PIGGYBACK IV (15:02)
[2024-11-23] MEDS: KCl 20mEq/100ml 100 ML 50 MEQ IV ×2 (15:36→17:56)
[2024-11-23 16:15] LABS: Troponin I 0.03 ng/ml (0.00-0.034)
--- NOTE | 2024-11-23 16:28 | PC.NURSE ---
Report called to med surg
[2024-11-23] MEDS: FUROSEMIDE 40MG/4ML VIAL 80 MG IV (17:54)
--- NOTE | 2024-11-23 18:04 | EXP.HP ---
History of Present Illness *Admission Date: 11/23/24 *Reason for visit:: Confusion, hypertension *History of present illness: Ms. Bowers is an 89-year-old female with history of hypertension, hyperlipidemia, CAD and reported mild cognitive impairment/short-term memory loss per family. She presented to the ER via EMS as she drove herself to the local [employer] in [place]. She became more confused and had a near syncopal event at the store. Blood pressure noted to be severely elevated with systolics greater than 190 on arrival. Imaging shows cerebral atrophy but no acute intracranial abnormality. Patient's labs relatively nonactionable. Medicine was consulted for admission due to severity of her event and high risk for decompensation along with acute confusion. I agreed to admit for further care and addressing her blood pressure. On arrival to the floor, she answers questions appropriately. Does not recall when she took her meds last. Gives differing answers with family at bedside than what she gave in the ER. Is on room air. Afebrile. Denies chest pain, shortness of breath, nausea or vomiting. [facility] Disclaimer: The information contained in this section may have been updated after the patient was seen, as this information can be updated by other users. Medical History Abnormal electrocardiogram [ECG] [EKG] Surgical History History of lumpectomy of right breast H/O tubal ligation Family History Hypertension Mother Father Social History Smoking Status: Never smoker alcohol intake: never substance use type: denies use current occupational status: retired Travel in the last 8 weeks?: None household members: none housing: house Have you lived/traveled outside US in past 30 days?: No Contact w/someone who lives/traveled outside US past 30 days?: No Exposure to someone with infectious disease in past 14 days?: No Do you have a fever (greater than 100.4 F or 38 C)?: No Have you tested positive for COVID-19?: No Exposed to someone with COVID-19 in past 14 days?: No Do you have a sore throat?: No Do you have a cough?: No Do you have any weakness?: No Do you have any diarrhea?: No Are you experiencing any unusual bleeding?: No Do you have any muscle aches/pain?: No Do you have any abdominal pain?: No Are you experiencing loss of taste or smell?: No Other Medical History Have you received the Flu Vaccine for this season: Yes Have you received the Pneumonia Vaccine: Yes Review of Systems Review of Systems Review of systems (narrative): 14 point review of systems performed, pertinent positives and negatives as per HPI Meds Home Medications and Allergies Home Medications ?Medication ?Instructions ?Recorded ?Confirmed ?Type aspirin 81 mg tablet,delayed 81 mg PO DAILY 90 days #90 tabs 07/14/24 08/11/24 Rx release (Adult Aspirin Regimen) atorvastatin 40 mg tablet See Rx Instructions .Route 07/14/24 08/11/24 Rx .COMPLEX #90 tabs carvedilol 25 mg tablet 25 mg PO BID 90 days #180 tabs 07/14/24 08/11/24 Rx furosemide 40 mg tablet 40 mg PO DAILY PRN edema #90 tabs 07/14/24 08/11/24 Rx indapamide 2.5 mg tablet See Rx Instructions .Route 07/14/24 08/11/24 Rx .COMPLEX #90 tabs lisinopril 40 mg tablet See Rx Instructions .Route 07/14/24 08/11/24 Rx .COMPLEX #90 tabs clonidine HCl 0.1 mg tablet 0.1 mg PO DAILY PRN high blood 09/18/24 Rx pressure #30 tabs New Prescriptions to Start Prescriptions: Allergies Allergy/AdvReac Type Severity Reaction Status Date / Time No Known Allergies Allergy Verified 08/11/24 10:24 Exam Data for Last 24 hours Vital signs and Labs for Last 24 Hours: Temp Pulse Resp BP Pulse Ox O2 Del Method 97.8 F 60 18 133/60 95 Room Air 11/23/24 16:33 11/23/24 16:33 11/23/24 16:33 11/23/24 16:33 11/23/24 16:00 11/23/24 17:00 Laboratory Results - last 24 hr 11/23/24 12:03: WBC 5.5, RBC 4.06 L, Hgb 12.4, Hct 36.6 L, MCV 90.1, MCH 30.5, MCHC 33.9, RDW 13.4, Plt Count 212, MPV 10.5 H, Neut % (Auto) 73.6, Lymph % (Auto) 16.1, [place] % (Auto) 8.0, Eos % (Auto) 1.4, Baso % (Auto) 0.5, Neut # (Auto) 4.1, Lymph # (Auto) 0.9, [place] # (Auto) 0.4, Eos # (Auto) 0.1, Baso # (Auto) 0.0, PT 12.0, INR 1.08, APTT 23.6, Sodium 137, Potassium 3.2 L, Chloride 103, Carbon Dioxide 28, Anion Gap 9.2, BUN 31 H, Creatinine 1.20 H, Estimated Creat Clear 37, Estimated GFR 42 L, Est GFR ( Amer) 51 L, Glucose 136 H, Hemoglobin A1c 5.5, Calcium 9.9, Magnesium 1.5 L, Total Bilirubin 1.0, AST 42 H, ALT 16, Alkaline Phosphatase 92, Troponin I 0.03, NT-Pro-B Natriuret Pep 922 H, Total Protein 6.6, Albumin 4.0, Globulin 2.6, Albumin/Globulin Ratio 1.5, Lipase 122, Procalcitonin 0.061, TSH 4.79 H, Thyroxine (T4) 11.3 H, HCV Ab LIANNA w/Rflx PCR Qn Negative, HIV Ag/Ab Combo Qual Negative 11/23/24 12:26: VBG pH 7.43 H, VBG pCO2 40.9, VBG pO2 62.8 H, VBG HCO3 26.2, VBG Total CO2 27.5 H, VBG O2 Saturation 91.3 H, VBG Base Excess 1.8, VBG Lactic Acid 1.6 11/23/24 12:28: Urine Color Yellow, Urine Appearance Clear, Urine pH 6.0, Ur Specific [place] 1.010, Urine Protein Negative, Urine Glucose (UA) Negative, Urine Ketones Negative, Urine Blood Trace-i, Urine Nitrate Negative, Urine Bilirubin Negative, Urine Urobilinogen 0.2, Ur Leukocyte Esterase Negative, Urine RBC Occasional, Urine WBC None, Ur Squamous Epith Cells Occasional, Urine Bacteria Trace 11/23/24 13:04: Lactate 1.5 11/23/24 15:21: Troponin I 0.03 I & O for Last 24 hours: Intake & Output 11/20/24 11/21/24 11/22/24 11/23/24 23:59 23:59 23:59 23:59 Weight 66.848 kg Constitutional Constitutional: no acute distress, obese, chronically ill appearing and cooperative *Routine HEENT Exam Head: Present normocephalic Eye: Present EOMI and PERRL ENT: Present mucous membranes moist *Routine Neck Exam Neck: Present supple; Absent lymphadenopathy *Routine Respiratory Exam Respiratory: Present CTA bilaterally; Absent rhonchi, wheezes or crackles *Routine Cardiovascular Exam Cardiovascular: Present RRR *Routine Abdominal Exam Abdominal: Present soft and normoactive bowel sounds; Absent tenderness *Routine Rectal Exam Rectal:: deferred *Routine Genitalia Exam Genitalia:: deferred *Routine Extremities Exam Extremities: Present edema (2+ to knee); Absent cyanosis or clubbing *Routine Skin Exam Skin: Present warm; Absent rash *Routine Neurological Exam Neurological: Present alert and moving all extremities; Absent altered mental status Comments: Knows her name, family at bedside, that she is at [facility]. Does not recall the events that led to her coming here Assessment and Plan *Assessment and plan (1) Acute encephalopathy: Status: Acute Category: Medical Code(s): G93.40 - Encephalopathy, unspecified (2) Chronic kidney disease: Status: Acute Qualifiers: Chronic kidney disease stage: unspecified stage Qualified Code(s): N18.9 - Chronic kidney disease, unspecified Category: Medical Code(s): N18.9 - Chronic kidney disease, unspecified (3) Hypertension, uncontrolled: Status: Acute Category: Medical Code(s): I10 - Essential (primary) hypertension (4) Hyperlipidemia: Status: Acute Qualifiers: Hyperlipidemia type: unspecified Qualified Code(s): E78.5 - Hyperlipidemia, unspecified Category: Medical Code(s): E78.5 - Hyperlipidemia, unspecified (5) Mild cognitive impairment: Status: Acute Category: Medical Code(s): G31.84 - Mild cognitive impairment of uncertain or unknown etiology Plan 89-year-old female who lives at home by herself in [place]. Family is concerned for some worsening mild cognitive impairment. Occasionally will stop taking her medications. Reported to her grandson she has not taken them in 2 weeks. Found to be in hypertensive urgency on arrival with systolic greater than 190. Increased confusion. Got lost driving in her hometown. Had near syncopal event. Discussed case with ER physician, request admission for monitoring overnight and resumption of antihypertensives. I agreed to admit for further care and management. Feeling somewhat better upon arrival to the floor. Blood pressure showing improvement with systolics of 130. Does have significant edema. Initiating diuretics. Problems addressed as follows: Hypertensive urgency High risk syncope Medication noncompliance -Patient noted to have edema on exam. Severely elevated blood pressure. Worsening confusion when blood pressure elevated. Cautiously resume blood pressure meds. Initiate Lasix 80 mg IV once due to volume overload - Consider resuming blood pressure control in the morning giving improvement in systolic blood pressure to 130 upon arrival to the floor without any treatment - Concern for patient's safety living by herself. Independently mobile however. Discussed safety plan with family. Will consider having patient go home with family member versus family member staying with patient at discharge. - Therapy to evaluate in the morning - Hemoglobin normal at 12.4, kidney function with decrease, CKD 3 with BUN 31, creatinine 1.2. Appears to be at baseline for patient. Magnesium low at 1.5. Potassium 3.2. Replacing per protocol. - Repeat CBC, CMP, magnesium ordered for the morning. - Personally reviewed CT of head which shows cerebral atrophy, enlarged ventricles. No focal abnormalities or stroke Mild cognitive impairment: Continue with day night routine. Frequent reorientation from nursing. Caution with sedating medications due to risk for confusion. DNR Regular diet
[2024-11-23 20:04] LABS: Troponin I 0.02 ng/ml (0.00-0.034)
--- NOTE | 2024-11-23 20:05 | PC.NURSE ---
Spoke with family of patient, states patient has not been taking medications as needed, external med list, prescriptions have not been filled since July and June. Med rec has no meds due to this statement. Patient states she keeps medications in the cabinet, but unsure of what they are for, patient also states the cabinet over there, would like me to get them? . Patient will answer all orientation questions appropriately.
[2024-11-23] MEDS: LISINOPRIL 5MG TABLET 5 MG PO (22:40)
[2024-11-23] MEDS: OLANZapine 10 MG VIAL 5 MG IM (23:53)
[2024-11-24 04:00] VITALS: BP 125/83; PULSE 63; RESP 18; TEMP 36.4; O2SAT 93; BMI 27.9
[2024-11-24 06:42] LABS: Basophils % 0.3 % (0.1-2.0); Eosinophils % 0.2 % (0.1-12.0); Hematocrit 40.7 % (37.0-47.0); Immature Granulocytes # 0.05 10^3uL; Immature Granulocytes % 0.4 %; Lymphocytes # 1.1 K/mm3 (0.7-4.5); Lymphocytes % 9.2 % (10-50); Mean Corpuscular HGB Conc 33.9 g/dL (31.8-35.4); Mean Corpuscular Hemoglobin 30.4 pg (27.0-31.2); Mean Corpuscular Volume 89.6 fl (81-99); Mean Platelet Volume 10.9 fl (7.4-10.4); Monocytes % 8.2 % (1.7-9.3); Neutrophils # 9.5 K/mm3 (1.8-7.8); Neutrophils % 81.7 % (37.0-80.0); Nucleated Red Blood Cells # 0 10^3/uL; Nucleated Red Blood Cells % 0 %; Platelet Count 217 K/mm3 (142-424); Red Blood Count 4.54 M/mm3 (4.20-5.40); Red Cell Distribution Width 13.5 % (11.5-17.5); Red Cell Distribution Width-SD 44.3 fL; White Blood Count 11.7 K/mm3 (4.8-10.8)
[2024-11-24 06:55] LABS: Alanine Aminotransferase 21 U/L (12-78); Albumin Level 4.3 g/dl (3.5-5.0); Albumin/Globulin Ratio 1.7 (1.1-1.8); Alkaline Phosphatase 94 U/L (38-126); Anion Gap 12.8 mEq/L (5-15); Aspartate Amino Transferase 72 U/L (14-36); Bilirubin,Total 1.3 mg/dl (0.2-1.3); Blood Urea Nitrogen 32 mg/dl (7-17); Calcium 10.2 mg/dl (8.4-10.2); Carbon Dioxide 28 mmol/L (22.0-30.0); Chloride 98 mmol/L (98-107); Chol/HDL Ratio 4.1 (1-3.5); Cholesterol 202 mg/dl (140-200); Creatinine Clearance Estimated 33 mL/min (50-200); Estimated Glomerular Filt Rate 42 ml/min (>60); GFR (African American) 51 ML/MIN (>60); Globulin 2.6 g/dL (1.3-3.2); Glucose 105 mg/dl (74-100); HDL Cholesterol 49 mg/dl (40-60); Magnesium 2.1 mg/dl (1.6-2.3); Sodium 136 mmol/L (136-145); Total Protein,Serum 6.9 g/dl (6.3-8.2); Triglycerides 131 mg/dl (30-150); VLDL Cholesterol 26 mg/dL (0-40)
[2024-11-24 06:56] LABS: Potassium 2.8 mmoL/L (3.5-5.1)
--- NOTE | 2024-11-24 06:57 | PC.NURSE ---
reported critical k 2.8 to hospitalist
[2024-11-24 07:05] LABS: Direct LDL Cholesterol 96.99 mg/dL (100-129)
[2024-11-24 07:08] LABS: Hemoglobin 13.8 g/dL (12.2-16.2)
[2024-11-24 08:00] VITALS: PULSE 60
--- NOTE | 2024-11-24 08:35 | HMH.PHAINT1 ---
Pharmacy Intervention Comments: pt non compliant with medications, not filled since June 2024
--- NOTE | 2024-11-24 09:38 | HMH.OTEV ---
OT Inpatient Evaluation Rehab OT IP Evaluation Start: 11/23/24 17:02 Freq: ONCE Status: Active Protocol: Document 11/24/24 09:33 [facility] (Rec: 11/24/24 09:38 [facility] [id number]) Rehab OT IP Assessment Subjective History Pt oriented x2 on arrival. Pt refused to open eyes during evaluation, but would answer questions. Information provided by patient may not be trustworthy due to mentation. Patient admitted on 11/23/24 due to confusion and HTN. History and physical: Ms. Bowers is an 89-year-old female with history of hypertension, hyperlipidemia, CAD and reported mild cognitive impairment/short- term memory loss per family. She presented to the ER via EMS as she drove herself to the local [employer] in [place]. She became more confused and had a near syncopal event at the store. Blood pressure noted to be severely elevated with systolics greater than 190 on arrival. Imaging shows cerebral atrophy but no acute intracranial abnormality. Patient's labs relatively nonactionable. Medicine was consulted for admission due to severity of her event and high risk for decompensation along with acute confusion. I agreed to admit for further care and addressing her blood pressure. On arrival to the floor, she answers questions appropriately. Does not recall when she took her meds last. Gives differing answers with family at bedside than what she gave in the ER. Is on room air. Afebrile. Denies chest pain, shortness of breath, nausea or vomiting. Subjective Pt claims prior to being in the hospital, she was living alone. Pt reports she is independent with all ADLs. She also used a rolling walker . Pt asked to open her eyes multiple times but she refused to do so and kept saying no I want to sleep Objective Patient Orientation Person,Birthday Right Upper Extremity Gross ROM Min Limitation <25% Left Upper Extremity Gross ROM Min Limitation <25% Shoulder ROM Limitations Muscle Weakness Elbow ROM Limitations Muscle Weakness Wrist Limitations of Range of Motion Muscle Weakness Bed Mobility bed mobility-scooting,bed mobility - supine/sit Assist Level Maximum x 2 (75% assist) Rehab OT IP prob,goals,plan Problems Date of Evaluation: 11/24/24 OT IP Problems Bed Mobility,Transfers,Balance ,Self care,Safety Rehab Potential Rehab Potential Good Equipment Needs Assistive Devices Rolling / Wheeled Walker Plan OT intervention Plan Bed Mobility,Transfers,Balance ,Self care,Safety,Therapeutic Exercise OT Plan Frequency Daily Duration LOS Discharge Goals Bed Mobility Ability Assistance x1 Sit to Stand Chair Transfer Ability Maximum x 1 (75% assist) Chair Transfer Ability Maximum x 1 (75% assist) Chair Transfer Technique Stand Step Pivot Chair Transfer Assistive Devices Rolling Walker Feeding Ability Assist with Tray Set Up Lower Body Dressing Ability Maximum Assistance Upper Body Dressing Ability Moderate Assistance Bathing Ability Maximum Assistance Performing Toilet Hygiene Ability Maximum Assistance Overall Commode/Toilet Transfer Ability Maximum Assistance Commode/Toilet Transfer Technique Stand Step Pivot Commode/Toilet Transfer Assistive Grab Bars Devices Discharge Plan OT Discharge Plan Pt will continue to be seen for OT services while at [facility]. Pt would benefit most from short term rehab at SNF following hospital stay. Continued skilled therapy services are important in order for patient to improve strength, safety, endurance, ADL independence, and functional transfers to reach PLOF. Eval Complexity Eval Charge Codes 69267 - Moderate Complexity PHYSICIAN CERTIFICATION: I certify the specified therapy services for Tiara Bowers are required, authorized, and reviewed every 30 days.
--- NOTE | 2024-11-24 10:21 | HMH.PTEV ---
Physical Therapy Evaluation Rehab PT IP Evaluation Start: 11/23/24 17:02 Freq: .once Status: Active Protocol: Document 11/24/24 08:35 [facility] (Rec: 11/24/24 10:20 [facility] [id number]) Subjective/History History History Ms. Bowers is an 89-year-old female with history of hypertension, hyperlipidemia, CAD and reported mild cognitive impairment/short- term memory loss per family. Found to be in hypertensive urgency on arrival with systolic greater than 190. Increased confusion. Got lost driving in her hometown. Had near syncopal event. Patient is confused and lethargic and therefore is an unreliable historian. Pt states that she lives alone and is independent with all mobility and ADLs at baseline. Pt states that she occasionally uses a walker or cane for ambulation. Subjective Subjective Patient presents resting supine in bed. She is oriented to her name and , but unable to verify place. Pt is lethargic, confused, and required multiple requests to open her eyes but was able to respond to questions. [facility] How much help from another person do you currently need... Turning from your back to your side A lot while in a flat bed without using bedrails? Moving from lying on back to sitting on Total the side of a flat bed without using bedrails? Moving to and from a bed to a chair ( Total including a wheelchair)? Standing up from a chair using your arms Total ? (e.g., wheelchair, bedside chair) Walking in hospital room? Total Climbing 3-5 steps with a railing? Total Mobility Score 7 Mobility Level [facility] Mobility Calculator Mobility 2 Bed activities/ dependent transfer Rehab PT IP Eval Objective Appearance Patient Behavior Confused Patient Orientation Person,Birthday Difficulty following instructions severe Speech Pattern Soft-Spoken Ambulation Patient Able to Ambulate No Balance Ability to Arise Unable Sitting Balance Leans or slides in chair Dynamic Sitting Balance Ability Zero Transfers Bed Transfer Ability Maximum x 2 (75% assist) Rehab PT IP prob,goals,plan Problems Date of Evaluation: 11/24/24 PT IP Problems Bed Mobility,Transfers,Gait, Balance,Self care Rehab Potential Rehab Potential Good Plan PT Intervention Plan Bed Mobility,Transfers,Gait, Balance,Self care,Safety, Therapeutic Exercise PT Plan Frequency Daily Duration LOS Discharge Goals Bed Transfer Ability Maximum x 1 (75% assist) Sit to Stand Chair Transfer Ability Maximum x 2 (75% assist) Discharge Plan PT Discharge Plan Patient is currently most appropriate for placement in a skilled rehab facility once medically stable for d/c. Patient is independent at baseline and today required MaxA x2 progressing to dependent assist for all bed mobility and sitting at EOB. Pt demonstrated fair LE strength moving at EOB, so confusion likely contributed to amount of assist required. Skilled acute therapy is currently indicated to improve LE and trunk strength and ability to transfer and ambulate and return to PLOF with all ADLs. Eval Complexity Eval Charge Codes 68027 - High Complexity PHYSICIAN CERTIFICATION: I certify the specified therapy services for Tiara Bowers are required, authorized, and reviewed every 30 days.
--- NOTE | 2024-11-24 10:33 | CARE MANAGER ---
Addendum entered by Sarah Fontenot 11/27/24 09:31: I have updated Moris w/ [facility] that patient discharged home w/ family over weekend. Addendum entered by Laura Izquierdo RN 11/24/24 15:43: Angela has been made POA and copy is in chart. Discussed going to bank to find out financial situation and if possibly be medicaid pending or private pay at rehab. Misty will come speak to him today. Addendum entered by Sarah Fontenot 11/24/24 14:09: Angela at bedside w/ patient. Patient is able to answer some questions appropriately (name, , year). Patient was unsure of location at this time. I did discuss w/ grandson that patient will need a POA or emergency guardian if placement is needed at time of discharge. Angela is agreeable for information to be faxed to [facility] and [facility]. Information will be faxed today. Angela is unsure if patient would require private pay vs Medicaid pending. Angela is going to get in contact w/ patient's Senior Software Quality Analyst and discuss POA paperwork. MD is hopeful that patient will continue to improve mentally/physically. I will continue to follow up. Original Note: Spoke with son regarding discharge plans. Discussed that the patient is currently totally dependent when evaluated by physical therapy and at this point they recommend rehab. Discussed that she will not have qualifying stay and would have to go private pay or Medicaid pending. Son states he has no access to her finances. He will be here at 1pm and to send the patient's information to facilities as close to [place] as possible.
[2024-11-24 12:00] VITALS: BP 128/80; PULSE 54; PULSE 60; RESP 16; TEMP 36.6; O2SAT 94
[2024-11-24 13:47] VITALS: BMI 27.9
[2024-11-24] MEDS: POTASSIUM CHLORIDE 20MEQ TAB 40 MEQ PO ×2 (13:54→16:08)
--- NOTE | 2024-11-24 13:56 | EXP.ACUTE.PN ---
Subjective *Date: 11/24/24 *Time: 13:56 Interval history: Patient had episode of confusion overnight, necessitated Zyprexa to rest and due to risk of self-harm. Sleeping this morning. Family at bedside and social work assisting with placement recommendations. Afebrile, on room air. Medical Exam Vital signs and Labs for Last 24 Hours: Vital Signs Temp Pulse Pulse Resp BP BP Pulse Ox 11/24/24 12:00 97.8 F 54 L 16 128/80 94 L 11/24/24 11:00 11/24/24 09:00 11/24/24 08:00 11/24/24 08:00 60 11/24/24 06:38 11/24/24 05:00 11/24/24 04:00 97.5 F L 63 18 125/83 93 L 11/24/24 03:00 11/24/24 01:00 11/23/24 23:58 98.0 F 67 18 138/75 93 L 11/23/24 23:00 11/23/24 21:00 11/23/24 20:00 60 11/23/24 20:00 11/23/24 20:00 97.8 F 79 16 164/114 H 94 L 11/23/24 18:40 11/23/24 17:00 11/23/24 16:33 97.8 F 60 18 133/60 11/23/24 16:16 11/23/24 16:00 97.7 F 65 19 147/97 H 95 11/23/24 16:00 66 140/89 94 L 11/23/24 15:31 63 17 153/71 H 95 11/23/24 15:01 60 15 157/90 H 92 L 11/23/24 14:30 66 20 165/87 H 93 L 11/23/24 14:00 67 14 167/96 H 92 L O2 Del Method 11/24/24 12:00 11/24/24 11:00 Room Air 11/24/24 09:00 Room Air 11/24/24 08:00 Room Air 11/24/24 08:00 11/24/24 06:38 Room Air 11/24/24 05:00 Room Air 11/24/24 04:00 Room Air 11/24/24 03:00 Room Air 11/24/24 01:00 Room Air 11/23/24 23:58 Room Air 11/23/24 23:00 Room Air 11/23/24 21:00 Room Air 11/23/24 20:00 11/23/24 20:00 Room Air 11/23/24 20:00 Room Air 11/23/24 18:40 Room Air 11/23/24 17:00 Room Air 11/23/24 16:33 Room Air 11/23/24 16:16 Room Air 11/23/24 16:00 Room Air 11/23/24 16:00 Room Air 11/23/24 15:31 Room Air 11/23/24 15:01 Room Air 11/23/24 14:30 Room Air 11/23/24 14:00 Room Air Intake and Output 11/23/24 11/24/24 11/24/24 23:59 07:59 15:59 Intake Total 120 / 120 Output Total 700 / 700 Balance -700 / -580 120 / 120 Intake: Intake, Oral Amount 120 / 120 Output: Output, Urine Amount 700 / 700 Other: Number of Unmeasured Voids 1 1 Number of Bowel Movements 1 Weight 66.848 kg 64.501 kg Patient Weight 11/24/24 23:59 Weight 64.501 kg Laboratory Results - last 24 hr 11/23/24 12:03: HCV Ab LIANNA w/Rflx PCR Qn Negative, HIV Ag/Ab Combo Qual Negative 11/23/24 15:21: Troponin I 0.03 11/23/24 18:37: Troponin I 0.02 11/24/24 06:11: WBC 11.7 H D, RBC 4.54, Hgb 13.8 D, Hct 40.7, MCV 89.6, MCH 30.4, MCHC 33.9, RDW 13.5, Plt Count 217, MPV 10.9 H, Neut % (Auto) 81.7 H, Lymph % (Auto) 9.2 L, [place] % (Auto) 8.2, Eos % (Auto) 0.2, Baso % (Auto) 0.3, Neut # (Auto) 9.5 H, Lymph # (Auto) 1.1, [place] # (Auto) 1.0, Eos # (Auto) 0.0, Baso # (Auto) 0.0, Sodium 136, Potassium 2.8 L*, Chloride 98, Carbon Dioxide 28, Anion Gap 12.8, BUN 32 H, Creatinine 1.20 H, Estimated Creat Clear 33, Estimated GFR 42 L, Est GFR ( Amer) 51 L, Glucose 105 H D, Calcium 10.2, Magnesium 2.1 D, Total Bilirubin 1.3, AST 72 H D, ALT 21 D, Alkaline Phosphatase 94, Total Protein 6.9, Albumin 4.3, Globulin 2.6, Albumin/Globulin Ratio 1.7, Triglycerides 131, Cholesterol 202 H, LDL Cholesterol Direct 96.99 L, VLDL Cholesterol 26, HDL Cholesterol 49, Cholesterol/HDL Ratio 4.1 H I & O for Labs for Last 24 Hours: Intake & Output 11/21/24 11/22/24 11/23/24 11/24/24 23:59 23:59 23:59 23:59 Intake Total 120 / 120 Output Total 700 / 700 Balance -700 / -580 120 / 120 Weight 66.848 kg 64.501 kg Constitutional: Present no acute distress, average body habitus, chronically ill appearing and cooperative Head: Present atraumatic and normocephalic ENT: Present normal exam Respiratory: Present normal respiratory effort and able to speak in complete sentences; Absent rhonchi, wheezes or crackles Cardiac: Present Reg Rate and Rhythm GI: Present normal bowel sounds; Absent tenderness Extremities: Present normal inspection and full ROM Skin: Present intact; Absent erythema Neuro: Present Grossly Intact, alert, awake and moves all extremities Comment:: Will open eyes to voice, slow to wake this morning Assessment and Plan *Assessment and plan (1) Acute encephalopathy: Status: Acute Category: Medical Code(s): G93.40 - Encephalopathy, unspecified (2) Chronic kidney disease: Status: Acute Qualifiers: Chronic kidney disease stage: unspecified stage Qualified Code(s): N18.9 - Chronic kidney disease, unspecified Category: Medical Code(s): N18.9 - Chronic kidney disease, unspecified (3) Hypertension, uncontrolled: Status: Acute Category: Medical Code(s): I10 - Essential (primary) hypertension (4) Hyperlipidemia: Status: Acute Qualifiers: Hyperlipidemia type: unspecified Qualified Code(s): E78.5 - Hyperlipidemia, unspecified Category: Medical Code(s): E78.5 - Hyperlipidemia, unspecified (5) Mild cognitive impairment: Status: Acute Category: Medical Code(s): G31.84 - Mild cognitive impairment of uncertain or unknown etiology Plan 89-year-old female who lives at home by herself in [place]. Family is concerned for some worsening mild cognitive impairment. Occasionally will stop taking her medications. Reported to her grandson she has not taken them in 2 weeks. Found to be in hypertensive urgency on arrival with systolic greater than 190. Increased confusion. Got lost driving in her hometown. Had near syncopal event. Discussed case with ER physician, request admission for monitoring overnight and resumption of antihypertensives. I agreed to admit for further care and management. Patient episode of confusion overnight. Still resting comfortably this morning after 1 dose of Zyprexa. Blood pressure remained stable with no further intervention. Awaiting family discussion about goals of care and placement recommendations. Problems addressed as follows Hypertensive urgency High risk syncope Medication noncompliance -Patient noted to have edema on exam. Severely elevated blood pressure on admission. Blood pressure better overnight with systolics 120-130. - Received 1 dose of Lasix with improvement in edema. Stable on room air. - Holding on further antihypertensives at this time. Mild cognitive impairment - Concern for patient's safety living by herself. Independently mobile prior to entering the hospital, needing significant assistance today. Suspect component of side effect of medication to help her rest overnight as she was agitated and pulling IVs, causing self-harm. Will hold on further interventions. Continue with day night routine. Interaction with nursing. Consider one-on-one sitter if need be rather than further sedating medications. - White count 11.7 today, hemoglobin 14. Kidney function stable with BUN 32, creatinine 1.2. Potassium low, replacing per protocol. Currently 2.8. - Repeat CBC, CMP, magnesium ordered for the morning. - Personally reviewed CT of head which shows cerebral atrophy, enlarged ventricles. No focal abnormalities or stroke - Therapy evaluated, recommend placement. DNR Regular diet
[2024-11-24 16:00] VITALS: BP 126/74; PULSE 46; RESP 16; TEMP 36.6; O2SAT 96
--- NOTE | 2024-11-24 19:15 | PC.NURSE ---
PT SLEPT FOR MOST OF THE MORNING. WAS MORE ALERT IN THE AFTERNOON WHEN FAMILY CAME TO VISIT.
[2024-11-24 19:38] VITALS: BP 111/66; PULSE 64; RESP 16; TEMP 36.5; O2SAT 94
[2024-11-24 20:00] VITALS: PULSE 64; RESP 16; O2SAT 94
[2024-11-24] MEDS: LIDOCAINE 5% TRANSDERMAL PATCH 1 EACH TD (20:50)
[2024-11-25] VITALS: BP 105/62; PULSE 56; PULSE 60; RESP 17; TEMP 36.5; O2SAT 91
[2024-11-25 04:00] VITALS: BP 116/69; PULSE 55; PULSE 60; RESP 16; TEMP 36.4; O2SAT 96; BMI 29.2
--- NOTE | 2024-11-25 04:05 | PC.NURSE ---
Patient is alert to herself and could recite her birthday accordingly upon assessment; however, she has remained pleasantly confused to her surroundings, at times, throughout the shift. Family members called during the night to check in on the patient. She was observed to have eyes closed, respirations even and unlabored on room air, and no apparent distress throughout the majority of the night. She complained of aching, bilateral leg (calf) pain, of which lidocaine patches were applied to the areas transdermally. Nutrition supplements encouraged at bedtime but were refused. Briefs provided for incontinent elimination needs. Moderate swelling was observed in both legs and ankles. Her legs have remained elevated with pillows. Patient requires vast assistance during transfers. Nursing staff has repositioned the patient in bed numerous times during wakeful periods. Soft blood pressures and heart rate noted. At this time, the patient is resting in bed without any further complaints. No new needs at this time. Bed alarm on. Call light within reach.
[2024-11-25 08:00] VITALS: BP 129/67; PULSE 61; PULSE 70; RESP 16; TEMP 36.9; O2SAT 98
[2024-11-25 09:29] LABS: Basophils % 0.4 % (0.1-2.0); Eosinophils % 0.6 % (0.1-12.0); Hematocrit 38.4 % (37.0-47.0); Hemoglobin 13.2 g/dL (12.2-16.2); Immature Granulocytes # 0.02 10^3uL; Immature Granulocytes % 0.3 %; Lymphocytes # 1.1 K/mm3 (0.7-4.5); Lymphocytes % 15.1 % (10-50); Mean Corpuscular HGB Conc 34.4 g/dL (31.8-35.4); Mean Corpuscular Hemoglobin 30.9 pg (27.0-31.2); Mean Corpuscular Volume 89.9 fl (81-99); Mean Platelet Volume 10.9 fl (7.4-10.4); Monocytes # 0.5 K/mm3 (0.1-1.0); Monocytes % 6.2 % (1.7-9.3); Neutrophils # 5.6 K/mm3 (1.8-7.8); Neutrophils % 77.4 % (37.0-80.0); Nucleated Red Blood Cells # 0 10^3/uL; Nucleated Red Blood Cells % 0 %; Platelet Count 230 K/mm3 (142-424); Red Blood Count 4.27 M/mm3 (4.20-5.40); White Blood Count 7.3 K/mm3 (4.8-10.8)
[2024-11-25 09:33] LABS: Albumin Level 3.7 g/dl (3.5-5.0); Chloride 100 mmol/L (98-107); Potassium 3.4 mmoL/L (3.5-5.1); Sodium 137 mmol/L (136-145)
[2024-11-25 09:36] LABS: Alanine Aminotransferase 29 U/L (12-78); Albumin/Globulin Ratio 1.3 (1.1-1.8); Alkaline Phosphatase 79 U/L (38-126); Anion Gap 11.4 mEq/L (5-15); Aspartate Amino Transferase 72 U/L (14-36); Bilirubin,Total 0.7 mg/dl (0.2-1.3); Blood Urea Nitrogen 47 mg/dl (7-17); Carbon Dioxide 29 mmol/L (22.0-30.0); Creatinine Clearance Estimated 20 mL/min (50-200); Estimated Glomerular Filt Rate 22 ml/min (>60); GFR (African American) 27 ML/MIN (>60); Globulin 2.9 g/dL (1.3-3.2); Total Protein,Serum 6.6 g/dl (6.3-8.2)
[2024-11-25 09:37] LABS: Calcium 10.1 mg/dl (8.4-10.2); Glucose 166 mg/dl (74-100); Magnesium 2.1 mg/dl (1.6-2.3)
[2024-11-25 12:00] VITALS: BP 105/69; PULSE 60; PULSE 64; RESP 16; TEMP 37.1; O2SAT 96
--- NOTE | 2024-11-25 15:18 | EXP.ACUTE.PN ---
Subjective *Date: 11/25/24 *Time: 15:18 Interval history: No more confusion overnight. More oriented today. Oriented to self, knows she is in the hospital. Interacting with staff. Pleasant on interview. Afebrile and on room air. Medical Exam Vital signs and Labs for Last 24 Hours: Vital Signs Temp Pulse Pulse Resp BP Pulse Ox O2 Del Method 11/25/24 12:00 60 11/25/24 12:00 98.7 F 64 16 105/69 L 96 11/25/24 11:00 Room Air 11/25/24 08:58 Room Air 11/25/24 08:00 70 11/25/24 08:00 Room Air 11/25/24 08:00 98.4 F 61 16 129/67 98 11/25/24 06:35 Room Air 11/25/24 05:00 Room Air 11/25/24 04:00 60 11/25/24 04:00 97.5 F L 55 L 16 116/69 96 Room Air 11/25/24 03:00 Room Air 11/25/24 01:00 Room Air 11/25/24 00:00 60 11/25/24 00:00 97.7 F 56 L 17 105/62 L 91 L Room Air 11/24/24 23:00 Room Air 11/24/24 21:00 Room Air 11/24/24 20:00 64 16 94 L Room Air 11/24/24 19:38 97.7 F 64 16 111/66 94 L Room Air 11/24/24 18:36 Room Air 11/24/24 17:00 Room Air 11/24/24 16:00 98 F 46 L 16 126/74 96 Intake and Output 11/24/24 11/25/24 11/25/24 23:59 07:59 15:59 Intake Total 100 / 300 200 / 300 Output Total 0 / 0 Balance 100 / 300 200 / 300 Intake: Intake, Oral Amount 100 / 300 200 / 300 Output: Output, Urine Amount 0 / 0 Other: Number of Unmeasured Voids 0 Weight 67.585 kg Patient Weight 11/25/24 23:59 Weight 67.585 kg Laboratory Results - last 24 hr 11/25/24 09:07: WBC 7.3 D, RBC 4.27, Hgb 13.2, Hct 38.4, MCV 89.9, MCH 30.9, MCHC 34.4, RDW 14.0, Plt Count 230, MPV 10.9 H, Neut % (Auto) 77.4, Lymph % (Auto) 15.1, [place] % (Auto) 6.2, Eos % (Auto) 0.6, Baso % (Auto) 0.4, Neut # (Auto) 5.6, Lymph # (Auto) 1.1, [place] # (Auto) 0.5, Eos # (Auto) 0.0, Baso # (Auto) 0.0, Sodium 137, Potassium 3.4 L D, Chloride 100, Carbon Dioxide 29, Anion Gap 11.4, BUN 47 H D, Creatinine 2.10 H D, Estimated Creat Clear 20, Estimated GFR 22 L, Est GFR ( Amer) 27 L D, Glucose 166 H, Calcium 10.1, Magnesium 2.1, Total Bilirubin 0.7, AST 72 H, ALT 29 D, Alkaline Phosphatase 79, Total Protein 6.6, Albumin 3.7 D, Globulin 2.9, Albumin/Globulin Ratio 1.3 I & O for Labs for Last 24 Hours: Intake & Output 11/22/24 11/23/24 11/24/24 11/25/24 23:59 23:59 23:59 23:59 Intake Total 420 / 520 300 / 300 Output Total 700 / 700 0 / 0 Balance -700 / -580 420 / 520 300 / 300 Weight 66.848 kg 64.5 kg 67.585 kg Constitutional: Present no acute distress, average body habitus, chronically ill appearing and cooperative Head: Present atraumatic and normocephalic ENT: Present normal exam Respiratory: Present normal respiratory effort and able to speak in complete sentences; Absent rhonchi, wheezes or crackles Cardiac: Present Reg Rate and Rhythm GI: Present normal bowel sounds; Absent tenderness Extremities: Present normal inspection and full ROM Skin: Present intact; Absent erythema Neuro: Present Grossly Intact, alert, awake and moves all extremities Comment:: Oriented to self and place. Pleasant on exam. Answers questions appropriate Assessment and Plan *Assessment and plan (1) Acute encephalopathy: Status: Acute Category: Medical Code(s): G93.40 - Encephalopathy, unspecified (2) Chronic kidney disease: Status: Acute Qualifiers: Chronic kidney disease stage: unspecified stage Qualified Code(s): N18.9 - Chronic kidney disease, unspecified Category: Medical Code(s): N18.9 - Chronic kidney disease, unspecified (3) Hypertension, uncontrolled: Status: Acute Category: Medical Code(s): I10 - Essential (primary) hypertension (4) Hyperlipidemia: Status: Acute Qualifiers: Hyperlipidemia type: unspecified Qualified Code(s): E78.5 - Hyperlipidemia, unspecified Category: Medical Code(s): E78.5 - Hyperlipidemia, unspecified (5) Mild cognitive impairment: Status: Acute Category: Medical Code(s): G31.84 - Mild cognitive impairment of uncertain or unknown etiology Plan 89-year-old female who lives at home by herself in [place]. Family is concerned for some worsening mild cognitive impairment. Occasionally will stop taking her medications. Reported to her grandson she has not taken them in 2 weeks. Found to be in hypertensive urgency on arrival with systolic greater than 190. Increased confusion. Got lost driving in her hometown. Had near syncopal event. Discussed case with ER physician, request admission for monitoring overnight and resumption of antihypertensives. I agreed to admit for further care and management. No further delirium overnight. Showing improvement today. More oriented. Continues to require significant assistance. Working with therapy. Problems addressed as follows: Hypertensive urgency High risk syncope Medication noncompliance - Blood pressure stable, 105/69 this morning - No medications needed at this time for blood pressure. Continue to hold on further antihypertensive Mild cognitive impairment - Concern for patient's safety living by herself. Independently mobile prior to entering the hospital, needing significant assistance today. Suspect component of side effect of medication to help her rest overnight as she was agitated and pulling IVs, causing self-harm. Will hold on further interventions. Continue with day night routine. Interaction with nursing - Improved mentation today. No longer needing one-on-one sitter. - White count normal at 7.3, hemoglobin 13.2. - Worsening kidney function today with increase in BUN to 47 and creatinine 2.1. Suspect prerenal due to poor p.o. intake yesterday. Will administer 500 cc of LR over 2 hours - Repeat CBC, CMP, magnesium ordered for the morning. - Therapy evaluated, recommend placement. - Initiate melatonin 5 mg nightly DNR Regular diet
[2024-11-25] MEDS: LACTATED RINGERS 1000ML 500 ML 250 ML IV (15:45)
[2024-11-25 16:00] VITALS: BP 133/74; PULSE 59; RESP 13; TEMP 36.9; O2SAT 91
--- NOTE | 2024-11-25 18:06 | PC.NURSE ---
patient has been more alert this shift. patient has been pleasantly confused. currently sitting up in chair eating dinner, family at bedside. bed alarm in place. no c/o pain. remains on room air. VSS. call light within reach, no further requests at this time
[2024-11-25 20:00] VITALS: BP 101/51; PULSE 60; RESP 17; TEMP 37; O2SAT 95
[2024-11-25] MEDS: MELATONIN 5MG TABLET 5 MG PO (20:49)
[2024-11-25] MEDS: LIDOCAINE 5% TRANSDERMAL PATCH 1 EACH TD (20:49)
[2024-11-26] VITALS: BP 111/67; PULSE 60; RESP 18; TEMP 36.9; O2SAT 94
[2024-11-26 04:00] VITALS: BP 123/73; PULSE 64; RESP 16; TEMP 36.6; O2SAT 97; BMI 29.2
--- NOTE | 2024-11-26 05:59 | PC.NURSE ---
Pt was alert and oriented x 3 throughout the shift. Pt rested well, however was hard to wake for toileting. Pt BP 123/73 as of 399, pt BP has remained within normal limits this shift. No acute changes to note this shift.
[2024-11-26 07:54] LABS: Basophils % 0.5 % (0.1-2.0); Eosinophils # 0.1 Kmm3 (0.0-0.4); Eosinophils % 1.8 % (0.1-12.0); Hematocrit 38.8 % (37.0-47.0); Hemoglobin 12.9 g/dL (12.2-16.2); Immature Granulocytes # 0.02 10^3uL; Immature Granulocytes % 0.3 %; Lymphocytes # 1.4 K/mm3 (0.7-4.5); Lymphocytes % 17.5 % (10-50); Mean Corpuscular HGB Conc 33.2 g/dL (31.8-35.4); Mean Corpuscular Hemoglobin 30.6 pg (27.0-31.2); Mean Corpuscular Volume 91.9 fl (81-99); Mean Platelet Volume 10.8 fl (7.4-10.4); Monocytes # 0.6 K/mm3 (0.1-1.0); Monocytes % 7.5 % (1.7-9.3); Neutrophils # 5.6 K/mm3 (1.8-7.8); Neutrophils % 72.4 % (37.0-80.0); Nucleated Red Blood Cells # 0 10^3/uL; Nucleated Red Blood Cells % 0 %; Platelet Count 212 K/mm3 (142-424); Red Blood Count 4.22 M/mm3 (4.20-5.40); Red Cell Distribution Width 13.9 % (11.5-17.5); Red Cell Distribution Width-SD 46.7 fL; White Blood Count 7.8 K/mm3 (4.8-10.8)
[2024-11-26 08:00] VITALS: BP 111/75; PULSE 56; RESP 20; TEMP 37; O2SAT 95
[2024-11-26 08:12] LABS: Albumin Level 3.6 g/dl (3.5-5.0); Chloride 101 mmol/L (98-107); Potassium 3.3 mmoL/L (3.5-5.1); Sodium 138 mmol/L (136-145)
[2024-11-26 08:15] LABS: Alanine Aminotransferase 26 U/L (12-78); Albumin/Globulin Ratio 1.3 (1.1-1.8); Alkaline Phosphatase 90 U/L (38-126); Anion Gap 8.3 mEq/L (5-15); Aspartate Amino Transferase 64 U/L (14-36); Bilirubin,Total 0.4 mg/dl (0.2-1.3); Blood Urea Nitrogen 57 mg/dl (7-17); Carbon Dioxide 32 mmol/L (22.0-30.0); Creatinine Clearance Estimated 22 mL/min (50-200); Estimated Glomerular Filt Rate 25 ml/min (>60); GFR (African American) 30 ML/MIN (>60); Globulin 2.8 g/dL (1.3-3.2); Magnesium 2.2 mg/dl (1.6-2.3); Total Protein,Serum 6.4 g/dl (6.3-8.2)
[2024-11-26 08:16] LABS: Calcium 9.7 mg/dl (8.4-10.2); Glucose 129 mg/dl (74-100)
[2024-11-26 12:00] VITALS: BP 133/83; PULSE 60; RESP 14; TEMP 36.9; O2SAT 97
[2024-11-26] MEDS: POTASSIUM CHLORIDE 20MEQ TAB 40 MEQ PO ×2 (14:27→17:08)
[2024-11-26 16:00] VITALS: BP 139/74; PULSE 71; RESP 23; TEMP 37; O2SAT 96
--- NOTE | 2024-11-26 16:56 | EXP.DC.SUM ---
General Admission date:: 11/23/24 Discharge date: 11/26/24 HPI HPI HPI: Ms. Bowers is an 89-year-old female with history of hypertension, hyperlipidemia, CAD and reported mild cognitive impairment/short-term memory loss per family. She presented to the ER via EMS as she drove herself to the local [employer] in [place]. She became more confused and had a near syncopal event at the store. Blood pressure noted to be severely elevated with systolics greater than 190 on arrival. Imaging shows cerebral atrophy but no acute intracranial abnormality. Patient's labs relatively nonactionable. Medicine was consulted for admission due to severity of her event and high risk for decompensation along with acute confusion. I agreed to admit for further care and addressing her blood pressure. On arrival to the floor, she answers questions appropriately. Does not recall when she took her meds last. Gives differing answers with family at bedside than what she gave in the ER. Is on room air. Afebrile. Denies chest pain, shortness of breath, nausea or vomiting. Hospital Course Hospital Course Hospital Course: 89-year-old female who lives at home by herself in [place]. Family is concerned for some worsening mild cognitive impairment. Occasionally will stop taking her medications. Reported to her grandson she has not taken them in 2 weeks. Found to be in hypertensive urgency on arrival with systolic greater than 190. Increased confusion. Got lost driving in her hometown. Had near syncopal event. Discussed case with ER physician, request admission for monitoring overnight and resumption of antihypertensives. I agreed to admit for further care and management. Was confused first night of admission, gradually improved during admission. Kidney injury showing improvement. She is back to baseline mentation and alert and oriented x 3, recommended discharging home with family for safety and ask for support. Patient agreeable. Discharged with grandson. Problems addressed as follows: Hypertensive urgency High risk syncope Medication noncompliance - Blood pressure initially elevated, improved during admission. Normalized with no further medications. Stable for 48 hours with systolic less than 130. Continue to hold antihypertensives at this time. Mild cognitive impairment - Concern for patient's safety living by herself. Independently mobile prior to entering the hospital, needing significant assistance initially during admission. Showed gradual improvement. Ambulatory but still somewhat weak. Alert and oriented x 4 on day of discharge. Family feels she is back to baseline mentation. White count normal 7.8, hemoglobin stable at 12.9. Kidney function improving. Not quite to baseline on day of discharge but improved with creatinine of 1.9. Tolerating p.o. intake. Will hold on further diuretics. As her mentation is better, no need for placement in rehab at this time. Would benefit from outpatient or home health therapy. Initiate melatonin 5 mg nightly to assist with sleep. Would benefit from repeat labs at follow-up with PCP. Total time spent on discharge 42 minutes in counseling, documentation, chart review, and direct care with patient. Exam Data for Last 24 hours Vital signs and Labs for Last 24 Hours: Temp Pulse Resp BP Pulse Ox O2 Del Method 98.4 F 60 14 133/83 97 Room Air 11/26/24 12:00 11/26/24 12:00 11/26/24 12:00 11/26/24 12:00 11/26/24 12:00 11/26/24 15:00 Laboratory Results - last 24 hr 11/26/24 07:35: WBC 7.8, RBC 4.22, Hgb 12.9, Hct 38.8, MCV 91.9, MCH 30.6, MCHC 33.2, RDW 13.9, Plt Count 212, MPV 10.8 H, Neut % (Auto) 72.4, Lymph % (Auto) 17.5, [place] % (Auto) 7.5, Eos % (Auto) 1.8, Baso % (Auto) 0.5, Neut # (Auto) 5.6, Lymph # (Auto) 1.4, [place] # (Auto) 0.6, Eos # (Auto) 0.1, Baso # (Auto) 0.0, Sodium 138, Potassium 3.3 L, Chloride 101, Carbon Dioxide 32 H, Anion Gap 8.3, BUN 57 H, Creatinine 1.90 H, Estimated Creat Clear 22, Estimated GFR 25 L, Est GFR ( Amer) 30 L, Glucose 129 H D, Calcium 9.7, Magnesium 2.2, Total Bilirubin 0.4, AST 64 H, ALT 26, Alkaline Phosphatase 90, Total Protein 6.4, Albumin 3.6, Globulin 2.8, Albumin/Globulin Ratio 1.3 I & O for Last 24 hours: Intake & Output 05/15/11/24/24 11/25/24 11/26/24 23:59 23:59 23:59 23:59 Intake Total 420 / 520 540 / 780 660 / 660 Output Total 700 / 700 0 / 0 0 / 0 Balance -700 / -580 420 / 520 540 / 780 660 / 660 Weight 66.848 kg 64.5 kg 67.585 kg 67.495 kg Constitutional Constitutional: no acute distress, obese, chronically ill appearing and cooperative *Routine HEENT Exam Head: Present normocephalic Eye: Present EOMI and PERRL ENT: Present mucous membranes moist *Routine Neck Exam Neck: Present supple; Absent lymphadenopathy *Routine Respiratory Exam Respiratory: Present CTA bilaterally; Absent rhonchi, wheezes or crackles *Routine Cardiovascular Exam Cardiovascular: Present RRR *Routine Abdominal Exam Abdominal: Present soft and normoactive bowel sounds; Absent tenderness *Routine Rectal Exam Patient deferred: visual exam *Routine Exam Patient deferred: external exam *Routine Extremities Exam Extremities: Present edema (Lymphedema lower leg); Absent cyanosis or clubbing *Routine Skin Exam Skin: Present intact and warm; Absent rash *Routine Neurological Exam Neurological: Present alert, oriented X3 and moving all extremities; Absent altered mental status Results Data Completed and Pending Labs on day of discharge: Labs from last 24 hours 11/26/24 07:35 WBC 7.8 RBC 4.22 Hgb 12.9 Hct 38.8 MCV 91.9 MCH 30.6 MCHC 33.2 RDW 13.9 Plt Count 212 MPV 10.8 H Neut % (Auto) 72.4 Lymph % (Auto) 17.5 [place] % (Auto) 7.5 Eos % (Auto) 1.8 Baso % (Auto) 0.5 Neut # (Auto) 5.6 Lymph # (Auto) 1.4 [place] # (Auto) 0.6 Eos # (Auto) 0.1 Baso # (Auto) 0.0 Sodium 138 Potassium 3.3 L Chloride 101 Carbon Dioxide 32 H Anion Gap 8.3 BUN 57 H Creatinine 1.90 H Estimated Creat Clear 22 Estimated GFR 25 L Est GFR ( Amer) 30 L Glucose 129 H D Calcium 9.7 Magnesium 2.2 Total Bilirubin 0.4 AST 64 H ALT 26 Alkaline Phosphatase 90 Total Protein 6.4 Albumin 3.6 Globulin 2.8 Albumin/Globulin Ratio 1.3 DS: Diagnosis Discharge Diagnosis (1) Acute encephalopathy: Status: Resolved Code(s): G93.40 - Encephalopathy, unspecified (2) Chronic kidney disease: Status: Acute Code(s): N18.9 - Chronic kidney disease, unspecified Qualifiers: Chronic kidney disease stage: unspecified stage Qualified Code(s): N18.9 - Chronic kidney disease, unspecified (3) Hypertension, uncontrolled: Status: Acute Code(s): I10 - Essential (primary) hypertension (4) Hyperlipidemia: Status: Acute Code(s): E78.5 - Hyperlipidemia, unspecified Qualifiers: Hyperlipidemia type: unspecified Qualified Code(s): E78.5 - Hyperlipidemia, unspecified (5) Mild cognitive impairment: Status: Acute Code(s): G31.84 - Mild cognitive impairment of uncertain or unknown etiology (6) Severe protein-calorie malnutrition: Status: Acute Code(s): E43 - Unspecified severe protein-calorie malnutrition (7) GLADYS (acute kidney injury): Status: Resolved Code(s): N17.9 - Acute kidney failure, unspecified Meds Home Medications and Allergies Home Medications ?Medication ?Instructions ?Recorded ?Confirmed ?Type melatonin 5 mg tablet 5 mg PO HS 30 days #30 tabs 11/26/24 Rx New Prescriptions to Start Prescriptions: melatonin Urbano Huff Allergies Allergy/AdvReac Type Severity Reaction Status Date / Time No Known Allergies Allergy Verified 08/11/24 10:24 Discharge Plan Disposition Patient Disposition: Home, Self-Care Condition: Fair Follow up Plan Follow up with: Elio Banerjee MD [Staff Physician] - Enter time for follow up (please call office for follow up appointment) Prescriptions/Medication Reconciliation: New melatonin 5 mg Tablet 5 mg PO HS 30 Days Qty: 30 0RF Problem Reconciliation Problems Reviewed?: Yes Patient Discharge Instructions ACTIVITY: Continue current activity DIET: continue same diet Stand Alone Forms: [facility] Work Release Patient Instructions: DI for High Blood Pressure, DI for Encephalopathy Print Language: Jordanian Providers Primary Care Provider: Provider,Referral Admit Provider: Urbano Huff Attending Provider: Urbano Huff
--- NOTE | 2024-11-27 14:09 | SW/DCPLANNER ---
Addendum entered by Claudette Garcia 11/27/24 15:24: [facility] is able [facility] accept patient. Yunior OBRIEN Consumer Services Advisor Original Note: Spoke with patients grandson on the phone. Talked to patient's grandson about Home Health Services and if she would be interested. Patient's grandson stated that they are interested in home health agency and he had no preference. Patient's son stated that he would like for me to ask the home health agency if he doesnt answer to leave a message and he will call back due to him working tooth cutter. I faxed patient's information to [facility] and will update once i hear back if patient is accepted or not. Yunior Fuentes
== END 2024-11-26 18:11 | disposition home or self-care (01) ==
LOC: ER 15:10 → 2ND 16:08
PROVIDERS: Admitting Provider Internal Medicine Adolescent Medicine; Emergency Provider Emergency Medicine; Visit Provider Internal Medicine Adolescent Medicine
DX: I16.0 Hypertensive urgency (principal); G93.40 Encephalopathy, unspecified; I13.10 Hypertensive heart and chronic kidney disease without heart failure, with stage 1 through stage 4 chronic kidney disease, or unspecified chronic kidney disease; N18.30 Chronic kidney disease, stage 3 unspecified; N17.9 Acute kidney failure, unspecified; E78.5 Hyperlipidemia, unspecified; G31.84 Mild cognitive impairment of uncertain or unknown etiology; E43 Unspecified severe protein-calorie malnutrition; R53.1 Weakness; R55 Syncope and collapse; E66.9 Obesity, unspecified; Z68.29 Body mass index [BMI] 29.0-29.9, adult; I89.0 Lymphedema, not elsewhere classified; R73.9 Hyperglycemia, unspecified; E87.6 Hypokalemia; E83.42 Hypomagnesemia; R45.1 Restlessness and agitation; Z60.2 Problems related to living alone; Z91.148 Patient's other noncompliance with medication regimen for other reason; X83.8XXA Intentional self-harm by other specified means, initial encounter; Z98.890 Other specified postprocedural states; Z82.49 Family history of ischemic heart disease and other diseases of the circulatory system; Z79.82 Long term (current) use of aspirin; Z79.899 Other long term (current) drug therapy
CPT/HCPCS: 36415; 70450; 70496; 70498; 71045; 71275; 80053; 80061; 81001; 82803; 83036; 83605; 83690; 83735; 83880; 84145; 84436; 84443; 84484; 85025; 85610; 85730; 86803; 87389; 93005; 97163; 97166; 97530; 99285; G0378; J1938; J3475; J7120; Q9967

== ENCOUNTER 2025-01-26 07:45 | Outpatient (CLI) | payer MEDICARE, OTHER, SELFPAY ==
--- OUTSIDE RECORDS SUMMARY | 2024-10-14 17:30 | XMS_ITS ---
Author Organization [facility] PE D [facility] Address [address] [facility] [address] [place] [address] Care Team Providers Care Intelligence Consultant Name Role Phone Martine Alfaro Primary Care Provider Migration, Provider Unavailable Unavailable [facility] Con[facility] Encounter Medications Medication SIG (Take, Route, Frequency, Duration) Notes Start Date End Date Status Atorvastatin Calcium 40 MG 1 tab(s) oral ly once a day; Duration: 30 day(s) Active Coreg 25 MG 1 tab(s) orally 2 ti mes a day; Duration: 30 day(s) Active Indapamide 2.5 MG 1 tab(s) orally once a day (in the morning); Duration: 30 day(s) Active Aspirin 81 MG 1 tab(s) orally once a day; Duration: 30 day(s) Active Lisinopril 40 MG 1 tab(s) orally once a day; Duration: 30 day(s) Active Lasix 20 MG 1 tab(s) orally once a day as needed for fluid; Duration: 30 day(s) Active Encounters Encounter Location Date Provider Diagnosis [facility] [address] [facility] [address] [place] [address] 10/14/2024 Provider Migration Peripheral edema R60.9 Assessments Encounter Date Diagnosis (ICD Code) Assessment Notes Treatment Notes Treatment Clinical Notes Section Notes 10/14/2024 Peripheral edema (ICD-10 - R60.9) Plan Of Treatment Medication Medication Name Sig Start Date Stop Date Notes Atorvastatin Calcium 40 MG 1 tab(s) oral ly once a day; Duration: 30 day(s) Coreg 25 MG 1 tab(s) orally 2 ti mes a day; Duration: 30 day(s) Indapamide 2.5 MG 1 tab(s) orally once a day (in the morning); Duration: 30 day(s) Lisinopril 40 MG 1 tab(s) orally once a day; Duration: 30 day(s) Lasix 20 MG 1 tab(s) orally once a day as needed for fluid; Duration: 30 day(s) Progress Notes * Tiara BOWERS TDOB:[birth year] (89 yo F)Acc No.[id number]:10/14/2024 Patient: Tiara GOYAL Provider: Madeleine carrington Migration :1935 A ge:89 Y S ex:Female Date:10/14/2024 Address:[facility] [address] [facility] Pcp:Martine Alfaro Subjective: * Chief Complaints: * 1 . Multum To Medispan Conversion Encounter. * Medical History: * Medications: T aking Aspirin 81 MG Tablet Delayed Release 1 tab(s) orally once a day Objective: * Vitals: Assessment: * Assessment: 1. P eripheral edema - R60.9 Plan: * Treatment: 2. O thers Refill Coreg Tablet, 25 MG, 1 tab(s), orally, 2 times a day, 30 day(s), 60 Tablet, Refills 5; R efill Indapamide Tablet, 2.5 MG, 1 tab(s), orally, once a day (in the morning), 30 day(s), 30, Refills 5; R efill Lisinopril Tablet, 40 MG, 1 tab(s), orally, once a day, 30 day(s), 30 Tablet, Refills 5; R efill Atorvastatin Calcium Tablet, 40 MG, 1 tab(s), orally, once a day, 30 day(s), 30 Tablet, Refills 5. * * Electronic signature of Prov ider Migration on 01/26/2025 at 07:48 AM EDT Sign off status: Pending * Provider: Madeleine carrington Migration Date: 10/14/2024 Generated for Jackie oviedo/Grace/Miguelitting on: 01/26/2025 07:48 AM EDT
--- OUTSIDE RECORDS SUMMARY | 2025-01-26 07:48 | XMS_ITS | Patient Health Record ---
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 Name Role Phone AngelinaMartine Primary Care Provider [phone] Migration, Provider Unavailable Unavailable Allergies No Known Allergies Medications Medication SIG (Take, Route, Frequency, Duration) Notes Start Date End Date Status Atorvastatin Calcium 40 MG 1 tab(s) oral ly once a day; Duration: 30 day(s) Active Lasix 20 MG 1 tab(s) orally once a day as needed for fluid; Duration: 30 day(s) Active Coreg 25 MG 1 tab(s) orally 2 ti mes a day; Duration: 30 day(s) Active Indapamide 2.5 MG 1 tab(s) orally once a day (in the morning); Duration: 30 day(s) Active Aspirin 81 MG 1 tab(s) orally once a day; Duration: 30 day(s) Active Lisinopril 40 MG 1 tab(s) orally once a day; Duration: 30 day(s) Active Immunizations Vaccine Route Administration Date Status Comme nts Influenza (Fluzone)--Medicare only Unknown 06/24/2016 R efused Problems Problem Type SNOMED Code ICD Code Onset Dates Problem Status W/U Status Risk Notes Problem Pure hypercholesterolemia (450792486) Pure hypercholesterolemia (E78.0) Active confirmed Problem Essential hypertension (55667479) Essential hypertension (I10) Active confirmed Problem BMI 30+ - obesity (766758201) BMI 32.0-32.9,adult (Z68.32) Active confirmed Problem Peripheral edema (20384176) Peripheral edema (R60.9) Active confirmed Problem Transient cerebral ischemia (816904922) Transient cerebral ischemia, unspecified type (G45.9) Active confirmed Problem Mixed hyperlipidemia (967206647) 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) Active confirmed Encounters Encounter Location Date Provider Diagnosis [facility] [address] [place] [address] 10/14/2024 Provider Migration Peripheral edema R60.9 Assessments Encounter Date Diagnosis (ICD Code) Assessment Notes Treatment Notes Treatment Clinical Notes Section Notes 10/14/2024 Peripheral edema (ICD-10 - R60.9) Plan Of Treatment Pending Test Test Name Order Date N-Uric acid 04/03/2008 N-CMP 12/28/2014 N-CMP 04/03/2008 N-Lipid Panel 12/28/2014 N-Lipid Panel 04/03/2008 Stool Culture 09/03/2009 Insurance Providers Payer Name Payer Address Payer Phone Subscriber Number Group Number Insured Name Patient Relationship to Insured Coverage Start Date Coverage End Date [place] [address] [place] [address] [id number] Tiraa Bowers Self - patient is the insured [employer] [address] [place] [address] [phone] [id number] Tiara Bowers Self - patient is the insured Medical (General) History Medical History History ICD Code Hypertension HLD TIA 2016 Surgical History Surgery Date(Month/Year) cataract tubal ligation
[2025-01-26 08:00] LABS: Hematocrit 34.3 % (37.0-47.0); Hemoglobin 11.4 g/dL (12.2-16.2); Immature Granulocytes % 0.2 %; Mean Corpuscular HGB Conc 33.2 g/dL (31.8-35.4); Mean Corpuscular Hemoglobin 30.2 pg (27.0-31.2); Mean Corpuscular Volume 90.7 fl (81-99); Nucleated Red Blood Cells % 0 %; Platelet Count 224 K/mm3 (142-424); Red Blood Count 3.78 M/mm3 (4.20-5.40); Red Cell Distribution Width-SD 48.8 fL; White Blood Count 5.4 K/mm3 (4.8-10.8)
[2025-01-26 08:29] LABS: Alanine Aminotransferase 19 U/L (12-78); Albumin Level 3.4 g/dl (3.5-5.0); Albumin/Globulin Ratio 1.4 (1.1-1.8); Alkaline Phosphatase 86 U/L (38-126); Anion Gap 13.3 mEq/L (5-15); Aspartate Amino Transferase 23 U/L (14-36); Bilirubin,Total 0.6 mg/dl (0.2-1.3); Blood Urea Nitrogen 23 mg/dl (7-17); Calcium 10.1 mg/dl (8.4-10.2); Carbon Dioxide 24 mmol/L (22.0-30.0); Chloride 105 mmol/L (98-107); Cholesterol 199 mg/dl (140-200); Creatinine,Serum 1.00 mg/dl (0.52-1.04); Estimated Glomerular Filt Rate 52 ml/min (>60); GFR (African American) 63 ML/MIN (>60); Globulin 2.4 g/dL (1.3-3.2); Glucose 88 mg/dl (74-100); HDL Cholesterol 43 mg/dl (40-60); Potassium 4.3 mmoL/L (3.5-5.1); Sodium 138 mmol/L (136-145); Total Protein,Serum 5.8 g/dl (6.3-8.2); Triglycerides 74 mg/dl (30-150)
[2025-01-26 08:44] LABS: Free T4 (Free Thyroxine) 1.03 ng/dl (0.78-2.19)
[2025-01-26 08:59] LABS: Thyroid Stimulating Hormone 1.51 uIU/mL (0.465-4.68)
[2025-01-26 09:18] LABS: Vitamin B12 389 pg/mL (239-931)
[2025-01-26 11:10] LABS: Folate 10.80 ng/mL
== END 2025-01-26 23:59 | disposition home or self-care (01) ==
PROVIDERS: PCP Family Medicine; Visit Provider Family Medicine
DX: E78.5 Hyperlipidemia, unspecified (principal)
CPT/HCPCS: 36415; 80053; 80061; 82607; 82746; 84439; 84443; 85025